=== PATIENT | male | born 1960 | race Caucasian/White ===

== ENCOUNTER 2016-08-25 18:46 | Emergency (ER) | payer OTHER ==
[2016-08-25 19:06] VITALS: BMI 34.8
--- NOTE | 2016-08-25 19:16 | PDOC ---
History of Present Illness - General History Source: Patient Exam Limitations: No Limitations - History of Present Illness Initial Comments: 08/25/16 19:53 The patient is a 55 old male, with a significant past medical history of diverticulitis (4 years ago), who presents to the emergency department with complaints of lower abdominal pain for the past 2-3 days. The patient reports that the pain is a cramping sensation in nature in his lower abdominal region. He reports that he believes he has diverticulitis again because he feels the same symptoms that he felt 4 years ago. He reports associated bloating and gas. The patient reports that he is on blood thinners because of circulation issues in his legs. He denies chest pain, shortness of breath, headache and dizziness. He denies fever, chills, nausea, vomit, diarrhea and constipation. Allergies: Lisinopril Past surgical history: arthroscopy surgery 30 years ago Social history:Former smoker (quit in 2013) PCP: Dr. Tu Sol <Suyapa Adame - Last Filed: 08/25/16 19:55> <Alexander French - Last Filed: 08/26/16 03:42> - General Chief Complaint: Pain Stated Complaint: ABDOMINAL PAIN Time Seen by Provider: 08/25/16 19:15 Past History <Suyapa Adame - Last Filed: 08/25/16 19:55> - Past Medical History Anemia: No (IN THE PAST) Asthma: No Cancer: No Cardiac Disorders: No (10-15 YEARS AGO "SILENT" HEART ATTACK. [place]) CVA: No COPD: No (? SMOKED X 35 YEARS) CHF: No (FOR CHEST PAIN AND CARDIAC W/U NEGATIVE) Dementia: No Diabetes: No GI Disorders: Yes (BARRETS ESOPHAGUS, DIVERTICULOSIS) Disorders: Yes (OVERACTIVE BLADDER) HTN: Yes Hypercholesterolemia: Yes Liver Disease: No Seizures: No Thyroid Disease: No - Surgical History Abdominal Surgery: No Appendectomy: No Cardiac Surgery: No Cholecystectomy: No Lung Surgery: No Neurologic Surgery: No Orthopedic Surgery: Yes (25 YEARS AGO-ARTHROSCOPY) - Psycho/Social/Smoking Cessation Hx Anxiety: No Suicidal Ideation: No Smoking History: Former smoker Have you smoked in the past 12 months: No If you are a former smoker, when did you quit?: 2013 Information on smoking cessation initiated: No Hx Alcohol Use: No Drug/Substance Use Hx: No Substance Use Type: None Hx Substance Use Treatment: No <Alexander French - Last Filed: 08/26/16 03:42> - Past Medical History Allergies/Adverse Reactions: Allergies Allergy/AdvReac Type Severity Reaction Status Date / Time lisinopril Allergy Severe Lip Verified 08/25/16 18:55 swelling Home Medications: Ambulatory Orders Aspirin [Aspir 81] 81 mg PO DAILY 01/29/16 Acetaminophen [Tylenol .Extra-Strength -] 1,000 mg PO DAILY 02/09/16 Atorvastatin Ca [Lipitor] 20 mg PO HS 02/09/16 Cholecalciferol (Vitamin D3) [Vitamin D3] 2,000 unit PO DAILY 02/09/16 Clopidogrel Bisulfate [Clopidogrel] 75 mg PO DAILY 02/09/16 Omeprazole 20 mg PO BID #0 02/12/16 Ciprofloxacin [Cipro (Restricted To Id)] 500 mg PO Q12H #20 tablet 08/25/16 Metronidazole [Flagyl -] 500 mg PO TID #30 tablet 08/25/16 Mirabegron [Myrbetriq] 25 mg PO 08/25/16 Review of Systems - Review of Systems Able to Perform ROS?: Yes Comments:: 08/25/16 19:54 GENERAL/CONSTITUTIONAL: No fever or chills. No weakness. HEAD, EYES, EARS, NOSE AND THROAT: No change in vision. No ear pain or discharge. No sore throat. CARDIOVASCULAR: No chest pain or shortness of breath. RESPIRATORY: No cough, wheezing, or hemoptysis. GASTROINTESTINAL: +Lower abdominal pain No nausea, vomiting, diarrhea or constipation. GENITOURINARY: No dysuria, frequency, or change in urination. MUSCULOSKELETAL: No joint or muscle swelling or pain. No neck or back pain. SKIN: No rash NEUROLOGIC: No headache, vertigo, loss of consciousness, or change in strength/ sensation. ENDOCRINE: No increased thirst. No abnormal weight change. HEMATOLOGIC/LYMPHATIC: No anemia, easy bleeding, or history of blood clots. ALLERGIC/IMMUNOLOGIC: No hives or skin allergy. <Suyapa Adame - Last Filed: 08/25/16 19:55> *Physical Exam - Vital Signs Last Vital Signs Temp Pulse Resp BP Pulse Ox 99.5 F 109 H 16 134/87 96 08/25/16 18:50 05/07/17 18:50 08/25/16 18:50 08/25/16 18:50 08/25/16 18:50 - Physical Exam Comments: 08/25/16 19:54 GENERAL: Awake, alert, and fully oriented, in no acute distress HEAD: No signs of trauma EYES: PERRLA, EOMI, sclera anicteric, conjunctiva clear ENT: Auricles normal inspection, hearing grossly normal, nares patent, oropharynx clear without exudates. Moist mucosa NECK: Normal ROM, supple, no lymphadenopathy, JVD, or masses LUNGS: Breath sounds equal, clear to auscultation bilaterally. No wheezes, and no crackles HEART: Regular rate and rhythm, normal S1 and S2, no murmurs, rubs or gallops ABDOMEN:. +Tender in the left lower quadrant. +Abdominal distension. Soft, normoactive bowel sounds. No guarding, no rebound. No masses EXTREMITIES: Normal range of motion, no edema. No clubbing or cyanosis. No cords, erythema, or tenderness NEUROLOGICAL: Cranial nerves II through XII grossly intact. Normal speech, normal gait SKIN: Warm, Dry, normal turgor, no rashes or lesions noted. <Suyapa Adame - Last Filed: 08/25/16 19:55> - Vital Signs Last Vital Signs Temp Pulse Resp BP Pulse Ox 99.5 F 109 H 16 134/87 96 08/25/16 18:50 08/25/16 18:50 08/25/16 18:50 08/25/16 18:50 08/25/16 18:50 <Alexander French - Last Filed: 08/26/16 03:42> ED Treatment Course - LABORATORY CBC & Chemistry Diagram: 08/25/16 19:20 08/25/16 19:20 <Suyapa Adame - Last Filed: 08/25/16 19:55> - LABORATORY CBC & Chemistry Diagram: 08/25/16 19:20 08/25/16 19:20 <Alexander French - Last Filed: 08/26/16 03:42> Medical Decision Making - Medical Decision Making 08/26/16 03:41 diverticulitis abx d/w pt: outpt imaging to fu renal findings on CT. copy of report given to pt to bring to PMD <Alexander French - Last Filed: 08/26/16 03:42> *DC/Admit/Observation/Transfer - Attestations Scribe Attestion: 08/25/16 19:54 Documentation prepared by FESTUS Toth, acting as lead medical technologist for Alexander French MD. <Suyapa Adame - Last Filed: 08/25/16 19:55> <Alexander French - Last Filed: 08/26/16 03:42> Diagnosis at time of Disposition: Diverticulitis Qualifiers: Diverticulitis site: large intestine Diverticulitis bleeding: without bleeding Diverticulitis complication: without perforation or abscess Qualified Code(s): K57.32 - Diverticulitis of large intestine without perforation or abscess without bleeding - Discharge Dispostion Disposition: HOME Condition at time of disposition: Good - Prescriptions Prescriptions: Ciprofloxacin [Cipro (Restricted To Id)] 500 mg PO Q12H #20 tablet Metronidazole [Flagyl -] 500 mg PO TID #30 tablet - Referrals Referrals: Tu Sol MD [Primary Care Provider] - - Patient Instructions Printed Discharge Instructions: DI for Diverticulitis
[2016-08-25 19:59] LABS: BASOPHIL 0.6 % (0-2.0); EOSINOPHIL 3.1 % (0-4.5); MCH 29.9 pg (25.7-33.7); MEAN CELL VOLUME 87.9 fl (80-96); MEAN PLT VOLUME 9.9 fl (7.5-11.1); NEUTROPHILS 64.1 % (42.8-82.8); PLATELET COUNT 198 K/MM3 (134-434); RDW 13.6 % (11.9-15.9)
[2016-08-25 20:08] LABS: ALBUMIN 4.1 g/dl (3.5-5.0); ALK PHOS 114 U/L (32-92); ANION GAP 9 (8-16); BILIRUBIN,TOTAL 0.5 mg/dl (0.2-1.0); CALCIUM 9.5 mg/dl (8.4-10.2); CO2 28 mmol/L (22-28); COCKROFT - GAULT 99; CREATININE 1.2 mg/dl (0.6-1.3); GLUCOSE,RANDOM 87 mg/dl (74-106); SGOT/AST 35 U/L (10-42); SGPT/ALT 61 U/L (10-40); TOT PROT 8.1 g/dl (6.4-8.3)
[2016-08-25] MEDS ORDERED: CIPROFLOXACIN 500 MG TABLET (RESTRICTED TO ID) PO ONE (22:18)
[2016-08-25] MEDS ORDERED: metroNIDAZOLE 250 MG TABLET PO ONE (22:19)
[2016-08-25] MEDS ORDERED: metroNIDAZOLE 250 MG TABLET ONE (22:24)
[2016-08-25] MEDS ORDERED: CIPROFLOXACIN 250 MG TABLET (RESTRICTED TO ID) PO ONE (22:24)
[2016-08-25 22:31] VITALS: BP 150/80; PULSE 92; TEMP 98.1
== END 2016-08-25 22:31 | disposition home or self-care (01) ==
LOC: FER 18:46
DX: K57.32 Diverticulitis of large intestine without perforation or abscess without bleeding (principal); I10 Essential (primary) hypertension; I25.2 Old myocardial infarction; Z95.5 Presence of coronary angioplasty implant and graft; N32.81 Overactive bladder; E78.00 Pure hypercholesterolemia, unspecified; Z87.891 Personal history of nicotine dependence; Z79.82 Long term (current) use of aspirin
CPT/HCPCS: 36415; 74177-TC; 80053; 85025; 99283-25

== ENCOUNTER 2017-01-06 08:48 | Day surgery (SDC) | payer OTHER ==
[2017-01-02 13:20] VITALS: BMI 34.7
[2017-01-06] MEDS ORDERED: PROPOFOL 20 ML ONE (09:56)
[2017-01-06 11:21] VITALS: TEMP 98
[2017-01-06 11:43] VITALS: BP 148/83; PULSE 84
--- NOTE | 2017-01-08 15:48 | PATH ---
Surgical Pathology Report Patient Name: TERRI PENNINGTON [facility]. Rec. #: [id number] /Age/Gender: 1960 (Age: 56) / M Account: [id number] Location: [facility]-ENDOSCOPY Taken: 01/06/2017 Received: 01/06/2017 Reported: 01/08/2017 Physicians: Elijah Robbins M.D. Specimen(s) Received A: BX 38CM B: BX 35CM C: BX 30CM Clinical History GERD, history of Ayala's History of Ayala's esophagus Final Diagnosis A. 38 CM, BIOPSY: COLUMNAR (GASTRIC-TYPE) MUCOSA SHOWING MILD CHRONIC INFLAMMATION AND INTESTINAL METAPLASIA, CONSISTENT WITH AYALA'S ESOPHAGUS IN THE APPROPRIATE ENDOSCOPIC SETTING. NEGATIVE FOR DYSPLASIA. B. 35 CM, BIOPSY: COLUMNAR (GASTRIC-TYPE) MUCOSA SHOWING MILD CHRONIC INFLAMMATION. NEGATIVE FOR INTESTINAL METAPLASIA AND DYSPLASIA. C. 30 CM, BIOPSY: COLUMNAR (GASTRIC-TYPE) MUCOSA SHOWING MILD CHRONIC INFLAMMATION. NEGATIVE FOR INTESTINAL METAPLASIA AND DYSPLASIA. Electronically Signed Shaila Stock M.D. Gross Description A. Received in formalin, labeled "38 cm" are 2 seals, irregular portions of soft tissue measuring 0.2 and 0.3 cm. in greatest dimension. The specimens are submitted in toto in one cassette. B. Received in formalin, labeled "35 cm" are 3 seals, irregular portions of soft tissue ranging from 0.1-0.2 cm. in greatest dimension. The specimens are submitted in toto in one cassette. C. Received in formalin, labeled "30 cm" are 4 seals, irregular portions of soft tissue ranging from 0.1-0.3 cm. in greatest dimension. The specimens are submitted in toto in one cassette. 01/07/2017 saudi01/07/2017
== END 2017-01-06 11:45 | disposition home or self-care (01) ==
LOC: FASU-ENDO 08:48
PROVIDERS: ATTEND Internal Medicine Gastroenterology
PROC: 0DB58ZX Excision of Esophagus, Via Natural or Artificial Opening Endoscopic, Diagnostic (ICD-10-PCS; principal; 2017-01-06 10:50)
DX: K22.70 Barrett's esophagus without dysplasia (principal); K44.9 Diaphragmatic hernia without obstruction or gangrene
CPT/HCPCS: 88305-TC

== ENCOUNTER 2017-03-20 17:59 | Inpatient (IN) | payer OTHER ==
[2017-03-20] MEDS ORDERED: SODIUM CHLORIDE 1,000 ML IV STA (18:26)
--- NOTE | 2017-03-20 18:34 | PDOC ---
History of Present Illness - History of Present Illness Initial Comments: 03/20/17 18:44 The patient is a 56 year old male, with a significant past medical history of diverticulitis (1yr ago), htn, who presents to the emergency department with explosive diarrhea, RLQ pain, and subjective fevers for 4 days. He reports waking up on Friday morning feeling well, until after he ate eggs and carey when he developed explosive diarrhea followed by pain to his right lower abdominal region. He reports numerous episodes of nonbloody, loose stools since onset. He also reports 2 episodes of nonbilious/nonbloody emesis on Friday afternoon. He reportedly took pepto bismol with temporary relief of his diarrhea , however, reports the stomach cramp got worse. He reports the abdominal pain was feeling better on Friday evening, however, reportedly ate eggs this morning which exacerbated the RLQ pain. He describes the pain as a 4/10 cramping sensation. He denies black stools or hematochezia. He reports one small , formed, bowel movement today. He states he feels very hot and cold, but denies taking his temperature. He denies chest pain, shortness of breath, headache and dizziness. He denies nausea, vomit, and constipation. He denies dysuria, frequency, urgency and hematuria. Allergies: lisinopril <Sharon Painter - Last Filed: 03/20/17 21:01> - General History Source: Patient <Deni Jones - Last Filed: 03/27/17 20:20> - General Chief Complaint: Pain Stated Complaint: STOMACH CRAMPS Time Seen by Provider: 03/20/17 18:07 Past History <Sharon Painter - Last Filed: 03/20/17 21:01> - Past Medical History Anemia: No (IN THE PAST) Asthma: No Cancer: No Cardiac Disorders: Yes CVA: No COPD: Yes (SMOKED X 35 YEARS) CHF: No (FOR CHEST PAIN AND CARDIAC W/U NEGATIVE) Dementia: No Diabetes: No GI Disorders: Yes Disorders: Yes HTN: Yes Hypercholesterolemia: Yes Liver Disease: No Seizures: No Thyroid Disease: No Other medical history: LOWER EXTREMITY ARTERIAL INSUFFICIENCY - Surgical History Abdominal Surgery: No Appendectomy: No Cardiac Surgery: Yes (CATHETERIZATION/1 STENT) Cholecystectomy: No Lung Surgery: No Neurologic Surgery: No Orthopedic Surgery: Yes (-LEFT KNEE ARTHROSCOPY 1992) - Suicide/Smoking/Psychosocial Hx Smoking History: Former smoker Have you smoked in the past 12 months: No If you are a former smoker, when did you quit?: 2013 Information on smoking cessation initiated: No Hx Alcohol Use: No Drug/Substance Use Hx: No Substance Use Type: None Hx Substance Use Treatment: No <Deni Jones - Last Filed: 03/27/17 20:20> - Past Medical History Allergies/Adverse Reactions: Allergies Allergy/AdvReac Type Severity Reaction Status Date / Time lisinopril Allergy Severe Lip Verified 08/25/16 18:55 swelling Home Medications: Ambulatory Orders Aspirin [Aspir 81] 81 mg PO DAILY 01/29/16 Atorvastatin Ca [Lipitor] 20 mg PO DAILY 02/09/16 Cholecalciferol (Vitamin D3) [Vitamin D3] 2,000 unit PO DAILY 02/09/16 Pantoprazole Sodium [Protonix] 40 mg PO BID 01/02/17 Tamsulosin HCl [Flomax] 0.4 mg PO BID 01/02/17 Amlodipine Besylate [Norvasc -] 10 mg PO DAILY #30 tablet 03/24/17 Melatonin 5 mg PO HS PRN tab 03/24/17 Review of Systems - Review of Systems Able to Perform ROS?: Yes Is the patient limited American proficient: No Constitutional: Yes: Chills, Fever (subjective). No: Loss of Appetite, Malaise , Night Sweats, Weakness HEENTM: No: Eye Pain, Recent change in vision, Ear Pain, Ear Discharge, Nose Congestion, Throat Pain, Throat Swelling Respiratory: No: Cough, Orthopnea, Shortness of Breath, SOB with Exertion Cardiac (ROS): No: Chest Pain, Edema, Palpitations ABD/GI: Yes: Diarrhea, Vomiting (x2 (now resolved)), Abdominal cramping (RLQ, 4/ 10). No: Abdominal Distended, Abd. Pain w/ defecation, Blood Streaked Bowels, Constipated, Difficulty Swallowing, Rectal Bleeding, Tarry Stools : No: Burning, Dysuria, Discharge, Frequency, Flank Pain, Hematuria, Incontinence, Testicular Pain Musculoskeletal: No: Back Pain, Joint Pain, Muscle Pain, Muscle Weakness, Neck Pain Integumentary: No: Bruising, Erythema Neurological: No: Headache, Numbness, Paresthesia, Weakness, Unsteady Gait, Dizziness Psychiatric: No: Anxiety, Depression Endocrine: No: Excessive Sweating, Increased Thirst, Increased Urine, Unexplained Weight Loss, Change in Weight Hematologic/Lymphatic: No: Anemia, Easy Bleeding, Easy Bruising All Other Systems: Reviewed and Negative <Sharon Painter - Last Filed: 03/20/17 21:01> *Physical Exam - Vital Signs Last Vital Signs Temp Pulse Resp BP Pulse Ox 97.8 F 99 H 18 127/75 99 03/20/17 18:01 03/20/17 18:01 03/20/17 18:01 03/20/17 18:01 03/20/17 18:01 - Physical Exam General Appearance: Yes: Appropriately Dressed, Mild Distress, Obese HEENT: positive: EOMI, PABLO, Normal ENT Inspection, Normal Voice, TMs Normal Neck: positive: Trachea midline, Normal Thyroid, Supple. negative: Tender Respiratory/Chest: positive: Lungs Clear, Normal Breath Sounds. negative: Chest Tender, Respiratory Distress, Rales, Rhonchi, Wheezing Cardiovascular: positive: Regular Rhythm, Regular Rate Gastrointestinal/Abdominal: positive: Normal Bowel Sounds, Protuberent, Tenderness (mild diffuse abdomen ttp). negative: Guarding, Rebound Musculoskeletal: positive: Normal Inspection. negative: CVA Tenderness Extremity: positive: Normal Capillary Refill, Normal Inspection, Normal Range of Motion Integumentary: positive: Normal Color, Dry, Warm Neurologic: positive: blister packing machine tender II-XII NML intact, Fully Oriented, Alert, Normal Mood/ Affect, Normal Response, Motor Strength 5/5 <Sharon Painter - Last Filed: 03/20/17 21:01> - Vital Signs Last Vital Signs Temp Pulse Resp BP Pulse Ox 97.8 F 99 H 18 127/75 99 03/20/17 18:01 03/20/17 18:01 03/20/17 18:01 03/20/17 18:01 03/20/17 18:01 <Deni Jones - Last Filed: 03/27/17 20:20> Heart Score/ECG Review - ECG Intrepretation Comment:: 03/20/17 19:03 ECG was read by Dr. Jnoes at 18:53 Impression: Normal sinus rhythm, right bundle branch block. Vent.Rate: 85 bpm <Sharon Painter - Last Filed: 03/20/17 21:01> ED Treatment Course - LABORATORY CBC & Chemistry Diagram: 03/20/17 18:33 03/20/17 18:33 <Sharon Painter - Last Filed: 03/20/17 21:01> - LABORATORY CBC & Chemistry Diagram: 03/24/17 07:40 03/24/17 07:40 <Deni Jones - Last Filed: 03/27/17 20:20> Medical Decision Making - Medical Decision Making 03/20/17 18:49 Pt is a 56 yo M who presents for 4 day complaint of diarrhea, RLQ pain, chills. Pt was evaluated upon arrival to the ED. I will give IV fluids and obtain an abdomen CT considering his Hx of diverticulitis. 03/20/17 19:00 The care of this patient has been endorsed to Dr. Gadiel Contreras. <Sharon Painter - Last Filed: 03/20/17 21:01> *DC/Admit/Observation/Transfer - Attestations Scribe Attestion: 03/20/17 18:49 Documentation prepared by Sharon Painter, acting as medical support assistant for Deni Jones MD <Sharon Painter - Last Filed: 03/20/17 21:01> <Deni Jones - Last Filed: 03/27/17 20:20> Diagnosis at time of Disposition: Renal failure, acute, Diarrhea - Discharge Dispostion Condition at time of disposition: Improved
[2017-03-20 18:47] LABS: PH,URINE 5.5 (4.5-8); URINE APPEARANCE Clear; URINE BILIRUBIN Negative (NEGATIVE); URINE BLOOD Negative (NEGATIVE); URINE GLUCOSE (UA) Negative (NEGATIVE); URINE KETONE Negative (NEGATIVE); URINE LEUK ESTERASE Negative (NEGATIVE); URINE NITRITE Negative (NEGATIVE); URINE UROBILINOGEN 0.2 (0.2-1.0)
[2017-03-20 18:48] LABS: URINE COLOR YELLOW; URINE PROTEIN 2+ (NEGATIVE)
[2017-03-20 18:55] LABS: ALBUMIN 4.2 g/dl (3.5-5.0); ALK PHOS 78 U/L (32-92); ANION GAP 9 (8-16); BASOPHIL 0.5 % (0-2.0); BILIRUBIN,TOTAL 1.1 mg/dl (0.2-1.0); CALCIUM 8.8 mg/dl (8.4-10.2); CO2 22 mmol/L (22-28); CREATININE 3.6 mg/dl (0.6-1.3); EOSINOPHIL 4.7 % (0-4.5); GLUCOSE,RANDOM 107 mg/dl (74-106); MCH 29.6 pg (25.7-33.7); MEAN CELL VOLUME 87.1 fl (80-96); MEAN PLT VOLUME 10.3 fl (7.5-11.1); NEUTROPHILS 55.5 % (42.8-82.8); PLATELET COUNT 156 K/MM3 (134-434); RDW 13.5 % (11.9-15.9); SGOT/AST 58 U/L (10-42); SGPT/ALT 104 U/L (10-40); TOT PROT 7.4 g/dl (6.4-8.3); WHITE BLOOD COUNT 7.2 K/mm3 (4.0-10.8)
[2017-03-20 19:10] LABS: URINE RBC 0-1 /hpf (0-3); URINE WBC 0-2 (0-2)
[2017-03-20 19:11] LABS: URINE BACTERIA FEW /hpf (NEGATIVE)
--- NOTE | 2017-03-20 19:21 | PDOC ---
*Physical Exam - Vital Signs Last Vital Signs Temp Pulse Resp BP Pulse Ox 97.8 F 99 H 18 127/75 99 03/20/17 18:01 03/20/17 18:01 03/20/17 18:01 03/20/17 18:01 03/20/17 18:01 <InocencioSharon - Last Filed: 03/20/17 21:02> - Vital Signs Last Vital Signs Temp Pulse Resp BP Pulse Ox 97.8 F 99 H 18 127/75 99 03/20/17 18:01 03/20/17 18:01 03/20/17 18:01 03/20/17 18:01 03/20/17 18:01 <Gadiel Mendoza I - Last Filed: 03/20/17 21:19> ED Treatment Course - LABORATORY CBC & Chemistry Diagram: 03/20/17 18:33 03/20/17 18:33 - ADDITIONAL ORDERS Additional order review: Laboratory Results 03/20/17 03/20/17 18:38 18:33 Sodium 130 L Potassium 3.9 Chloride 99 Carbon Dioxide 22 D Anion Gap 9 BUN 34 H D Creatinine 3.6 H D Creat Clearance w eGFR 17.50 Random Glucose 107 H D Calcium 8.8 Total Bilirubin 1.1 H D AST 58 H D ALT 104 H D Alkaline Phosphatase 78 D Total Protein 7.4 Albumin 4.2 Urine Color Yellow Urine Appearance Clear Urine pH 5.5 Ur Specific [place] <= 1.005 Urine Protein 2+ H Urine Glucose (UA) Negative Urine Ketones Negative Urine Blood Negative Urine Nitrite Negative Urine Bilirubin Negative Urine Urobilinogen 0.2 Ur Leukocyte Esterase Negative Urine RBC 0-1 Urine WBC 0-2 Amorphous Urates Few Urine Bacteria Few 03/20/17 18:33 RBC 4.72 MCV 87.1 MCHC 34.0 RDW 13.5 MPV 10.3 Neutrophils % 55.5 Lymphocytes % 23.8 Monocytes % 15.5 H D Eosinophils % 4.7 H Basophils % 0.5 - RADIOLOGY Radiograph Interpretation: EXAM#: TYPE/EXAM: RESULT: [id number] CT/ABDOMEN PELVIS CT W/O CONTR Exam: CT abdomen and pelvis without contrast. Indication: Right lower quadrant pain. Technique: Continues axial CT images of the abdomen and pelvis were obtained without venous contrast and without oral contrast. Comparison: 08/25/2016 CT abdomen/pelvis. Findings: Evaluation of the solid viscera, bowel, vessels and lymph nodes is limited without contrast. There is dependent subsegmental atelectasis versus linear scarring both lung bases, inferior lingula and medial right middle lobe. There is a small hiatal hernia. Liver is normal in size with steatosis. The gallbladder is not pathologically distended. Common bile duct is not dilated. Unenhanced pancreas is unremarkable. The spleen is enlarged measuring up to 14.3 cm in length. No adrenal gland mass. Small calcifications in the renal flaco are most likely vascular. There are no definite renal calculi. No ureteral or urinary bladder calculi identified. There are exophytic hypoattenuating lesions in both kidneys which are incompletely characterized without contrast, but appears similar to the prior exam, likely cysts. There is symmetric nonspecific perinephric fat stranding. Normal caliber abdominal aorta. Moderate calcific atherosclerosis along the abdominal aorta and branch vessels. There is a small hiatal hernia. No dilated loops of large or small bowel to suggest obstruction. There is diverticulosis of the sigmoid colon and scattered diverticula along the descending colon with no evidence of acute diverticulitis. Normal-appearing appendix in the right lower quadrant. No free intraperitoneal air or ascites. Urinary bladder is underdistended. Prostate gland is not enlarged. There is a small fat-containing left inguinal hernia. There is chronic bilateral L5 spondylolysis with grade 1 anterolisthesis of L5 on S1. Impression: 1. No urinary tract calculi identified. No obstructive uropathy. 2. Normal appendix. No evidence of acute diverticulitis. 3. Hepatic steatosis. 4. Splenomegaly. Reported By: Fidel Sepulveda DO 03/20/172058 - Medications Given in the ED: ED Medications Discontinued Medications Generic Name Dose Route Start Last Admin Trade Name Freq PRN Reason Stop Dose Admin Sodium Chloride 1,000 mls @ 1,000 mls/hr 03/20/17 18:26 03/20/17 18:33 Normal Saline - IV 03/20/17 19:25 1,000 mls/hr ASDIR STA Administration <Sharon Painter - Last Filed: 03/20/17 21:02> - LABORATORY CBC & Chemistry Diagram: 03/20/17 18:33 03/20/17 18:33 - ADDITIONAL ORDERS Additional order review: Laboratory Results 03/20/17 03/20/17 18:38 18:33 Sodium 130 L Potassium 3.9 Chloride 99 Carbon Dioxide 22 D Anion Gap 9 BUN 34 H D Creatinine 3.6 H D Creat Clearance w eGFR 17.50 Random Glucose 107 H D Calcium 8.8 Total Bilirubin 1.1 H D AST 58 H D ALT 104 H D Alkaline Phosphatase 78 D Total Protein 7.4 Albumin 4.2 Urine Color Yellow Urine Appearance Clear Urine pH 5.5 Ur Specific [place] <= 1.005 Urine Protein 2+ H Urine Glucose (UA) Negative Urine Ketones Negative Urine Blood Negative Urine Nitrite Negative Urine Bilirubin Negative Urine Urobilinogen 0.2 Ur Leukocyte Esterase Negative Urine RBC 0-1 Urine WBC 0-2 Amorphous Urates Few Urine Bacteria Few 03/20/17 18:33 RBC 4.72 MCV 87.1 MCHC 34.0 RDW 13.5 MPV 10.3 Neutrophils % 55.5 Lymphocytes % 23.8 Monocytes % 15.5 H D Eosinophils % 4.7 H Basophils % 0.5 <Gadiel Mendoza I - Last Filed: 03/20/17 21:19> Progress Note - Progress Note Progress Note: Care of this patient was transferred to ms from Dr. Jones at 1900 hrs. This is a morbidly obese 56-year-old old male with history significant for hypertension, high cholesterol, non-STEMI [place], diverticulitis 2 in the past most recently was back in August of this year. Patient came in this evening complaining of crampy abdominal pain 3 days with associated watery diarrhea 2 days. With a small but otherwise normal bowel movement today. Patient was afebrile here in the emergency room and had not taken his temperatures at home but said he felt hot and cold. Patient has a workup in progress including labs most of which are back. Patient has normal white count and there is no left shift. However on review of patient' s chemistries it is noted that he has a BUN of 34 and a creatinine of 3.6. It is notable that back in August of this year he had normal BUN and creat. He also has some elevation of his liver enzymes and which is new compared with his prior labs back in August. Patient is scheduled for a CT of the abdomen and pelvis to rule out intra- abdominal pathology. Given his elevated BUN and creat as well as his liver enzymes patient will have a noncontrast CT. His cardiogram shows a right bundle-branch block otherwise no acute pathology. CT was done and showed no acute intra-abdominal pathology, no obstructive uropathy there are some low attenuating lesions within the kidney most likely cysts and appeared to of been there on a prior scan. Does show a fatty liver otherwise normal. Assessment and plan: This is a 56-year-old male who comes in complaining of diarrhea and crampy abdominal pain. Patient was somewhat dehydrated on arrival in the emergency room he was hydrated with IV fluid however was noted that he had elevated liver enzymes as well as marked elevation of his creat over the last 5 months from 1.2-3.6. Discussed admission with the hospitalist for the acute renal failure patient will be placed in observation given some hydration and further workup regarding his renal insufficiency/failure <Gadiel Mendoza I - Last Filed: 03/20/17 21:19> *DC/Admit/Observation/Transfer - Attestations Scribe Attestion: 03/20/17 21:02 Documentation prepared by Sharon Painter, acting as medical records analyst for Gadiel Mendoza MD <Sharon Painter - Last Filed: 03/20/17 21:02> - Discharge Dispostion Admit: Yes <Gadiel Mendoza I - Last Filed: 03/20/17 21:19> Diagnosis at time of Disposition: Renal failure, acute Qualifiers: Acute renal failure type: unspecified Qualified Code(s): N17.9 - Acute kidney failure, unspecified Diarrhea Qualifiers: Diarrhea type: unspecified type Qualified Code(s): R19.7 - Diarrhea, unspecified - Discharge Dispostion Condition at time of disposition: Good - Referrals Referrals: Tu Sol MD [Primary Care Provider] - - Patient Instructions - Post Discharge Activity
[2017-03-20] MEDS ORDERED: SODIUM CHLORIDE 1,000 ML IV SCH (21:30)
--- NOTE | 2017-03-20 22:27 | HP ---
CHIEF COMPLAINT: Vomiting, Diarrhea and Abdominal Cramping PCP: Dr. Sol HISTORY OF PRESENT ILLNESS: This is a 56 y/o man with a past medical history of Diverticulitis. Who presents to the ED with abdominal cramping, non-bilious vomiting and diarrhea x 3 days. Patient reports having fever, chills with constant abdominal cramping. Patient reports pain to his epigastrium after eating. He reports that the vomiting resolved on Friday. Patient reports- last colonoscopy 2014- negative. Patient reports having a similar episode last August and was treated for Diverticulitis. Patient denies fever, chills, cough, SOB, CP, dysruia ER course was notable for: (1) CTAP- no Acute Diverticulitis. Fatty Liver, Diverticulosis of sigmoid colon (2) ELVIS- 34/3.6 (3) Mild transaminitis: 58/104/78 Recent Travel: None PAST MEDICAL HISTORY: HTN HLD Diverticulitis Frazier's Esophagus Hiatal Hernia PAD COPD Emphysema PAST SURGICAL HISTORY: Left iliac stent R-leg stent 01/2015 EGD 12/2016 Colonoscopy 2014 Social History: Smoking: Former x4 years ago Alcohol: Former x4 years ago Drugs: None Lives with family, retired Family History: Mother: Brain Ca, Sister: Ovarian Ca, Brother: Pancreatic Ca Sister: Colon Ca Allergies lisinopril Allergy (Severe, Verified 08/25/16 18:55) Lip swelling had been on medication approx 10 yrs before reaction HOME MEDICATIONS: Home Medications Medication Instructions Recorded Aspirin [Aspir 81] 81 mg PO DAILY 01/29/16 Atorvastatin Ca [Lipitor] 20 mg PO DAILY 02/09/16 Cholecalciferol (Vitamin D3) 2,000 unit PO DAILY 02/09/16 [Vitamin D3] Acetaminophen/Diphenhydramine 1 each PO HS PRN 01/02/17 [Tylenol Pm Ex-Strength Caplet] Pantoprazole Sodium [Protonix] 40 mg PO BID 01/02/17 Tamsulosin HCl [Flomax] 0.4 mg PO BID 01/02/17 REVIEW OF SYSTEMS CONSTITUTIONAL: Absent: fever, chills, diaphoresis, generalized weakness, malaise, loss of appetite, weight change HEENT: Absent: rhinorrhea, nasal congestion, throat pain, throat swelling, difficulty swallowing, mouth swelling, ear pain, eye pain, visual changes CARDIOVASCULAR: Absent: chest pain, syncope, palpitations, irregular heart rate, lightheadedness , peripheral edema RESPIRATORY: Absent: cough, shortness of breath, dyspnea with exertion, orthopnea, wheezing, stridor, hemoptysis GASTROINTESTINAL: abdominal pain, vomiting, diarrhea Absent: abdominal pain, abdominal distension, nausea, constipation, melena, hematochezia GENITOURINARY: Absent: dysuria, frequency, urgency, hesitancy, hematuria, flank pain, genital pain MUSCULOSKELETAL: Absent: myalgia, arthralgia, joint swelling, back pain, neck pain SKIN: Absent: rash, itching, pallor HEMATOLOGIC/IMMUNOLOGIC: Absent: easy bleeding, easy bruising, lymphadenopathy, frequent infections ENDOCRINE: Absent: unexplained weight gain, unexplained weight loss, heat intolerance, cold intolerance NEUROLOGIC: Absent: headache, focal weakness or paresthesias, dizziness, unsteady gait, seizure, mental status changes, bladder or bowel incontinence PSYCHIATRIC: Absent: anxiety, depression, suicidal or homicidal ideation, hallucinations. PHYSICAL EXAMINATION Vital Signs - 24 hr 03/20/17 18:01 Temperature 97.8 F Pulse Rate 99 H Respiratory 18 Rate Blood Pressure 127/75 O2 Sat by Pulse 99 Oximetry (%) GENERAL: Severely Obese, awake, alert, and fully oriented, in no acute distress. HEAD: Normal with no signs of trauma. EYES: Pupils equal, round and reactive to light, extraocular movements intact, sclera anicteric, conjunctiva clear. No lid lag. EARS, NOSE, THROAT: Ears normal, nares patent, oropharynx clear without exudates. Dry mucous membranes. NECK: Normal range of motion, supple without lymphadenopathy, JVD, or masses. LUNGS: Breath sounds equal, clear to auscultation bilaterally. No wheezes, and no crackles. No accessory muscle use. HEART: Regular rate and rhythm, normal S1 and S2 without murmur, rub or gallop. ABDOMEN: Firm, epigastric tenderness, distended, hyperactive bowel sounds, no guarding, no rebound, no masses. No hepatomegaly or splenomegaly. MUSCULOSKELETAL: Normal range of motion at all joints. No bony deformities or tenderness. No CVA tenderness. UPPER EXTREMITIES: 2+ pulses, warm, well-perfused. No cyanosis. No clubbing. No peripheral edema. LOWER EXTREMITIES: +2 R-foot, warm, well-perfused. +1 pulse, L-foot. No calf tenderness. No peripheral edema. NEUROLOGICAL: Cranial nerves II-XII intact. Normal speech. Gait not observed. PSYCHIATRIC: Cooperative. Good eye contact. Appropriate mood and affect. SKIN: Warm, dry, normal turgor, no rashes or lesions noted, normal capillary refill. Laboratory Results - last 24 hr 03/20/17 03/20/17 03/20/17 18:33 18:33 18:38 WBC 7.2 D RBC 4.72 Hgb 14.0 Hct 41.1 MCV 87.1 MCH 29.6 MCHC 34.0 RDW 13.5 Plt Count 156 D MPV 10.3 Neutrophils % 55.5 Lymphocytes % 23.8 Monocytes % 15.5 H D Eosinophils % 4.7 H Basophils % 0.5 Sodium 130 L Potassium 3.9 Chloride 99 Carbon Dioxide 22 D Anion Gap 9 BUN 34 H D Creatinine 3.6 H D Creat Clearance w eGFR 17.50 Random Glucose 107 H D Calcium 8.8 Total Bilirubin 1.1 H D AST 58 H D ALT 104 H D Alkaline Phosphatase 78 D Total Protein 7.4 Albumin 4.2 Urine Color Yellow Urine Appearance Clear Urine pH 5.5 Ur Specific [place] <= 1.005 Urine Protein 2+ H Urine Glucose (UA) Negative Urine Ketones Negative Urine Blood Negative Urine Nitrite Negative Urine Bilirubin Negative Urine Urobilinogen 0.2 Ur Leukocyte Esterase Negative Urine RBC 0-1 Urine WBC 0-2 Amorphous Urates Few Urine Bacteria Few Alcohol, Quantitative 03/20/17 21:25 WBC RBC Hgb Hct MCV MCH MCHC RDW Plt Count MPV Neutrophils % Lymphocytes % Monocytes % Eosinophils % Basophils % Sodium Potassium Chloride Carbon Dioxide Anion Gap BUN Creatinine Creat Clearance w eGFR Random Glucose Calcium Total Bilirubin AST ALT Alkaline Phosphatase Total Protein Albumin Urine Color Urine Appearance Urine pH Ur Specific [place] Urine Protein Urine Glucose (UA) Urine Ketones Urine Blood Urine Nitrite Urine Bilirubin Urine Urobilinogen Ur Leukocyte Esterase Urine RBC Urine WBC Amorphous Urates Urine Bacteria Alcohol, Quantitative < 5.0 L ASSESSMENT/PLAN: This is a 56 y/o man with a PMHx of: HTN, HLD, GERD, Diverticulitis. Admit for Acute Renal failure, Abdominal Pain, Gastroenteritis, Dehydration for further evaluation of their emergent condition. 1. ELVIS - Likely secondary to Dehydration - Cr 3.6, baseline last August was 1.2 - Fluid bolus given in ED - Continue IVF - BMP in am - Consider Nephrology Consult if condition worsens 2. Abdominal Pain - CTAP- No acute diverticulitis. fatty liver, diverticulosis - Appreciate GI Consult - Will not begin ABX, no clinical indication at this time 3. Gastroenteritis - Likely viral - Continue IVF - No leukocytosis, afebrile, LA- wnl - Repeat CBC, BMP in am - Monitor vitals - Obtain Stool Culture 4. Dehydration - See above 5. Transaminitis - Mildly elevated - Likely 6. Hypertension - Controlled - Monitor BP - Continue Norvasc, hold Losartan secondary to ELVIS - Monitor renal function 7. FEN - NS@75ml/hr - Replete lytes prn - NPO 8. DVT Prophylaxis - OOB - SCDs - Heparin SQ Code Status: Full Code Dispo: Requires Inpatient Care Problem List - Problem (1) Vomiting and diarrhea Code(s): R11.10 - VOMITING, UNSPECIFIED; R19.7 - DIARRHEA, UNSPECIFIED (2) Renal failure, acute Code(s): N17.9 - ACUTE KIDNEY FAILURE, UNSPECIFIED Qualifiers: Acute renal failure type: unspecified Qualified Code(s): N17.9 - Acute kidney failure, unspecified (3) Dehydration Code(s): E86.0 - DEHYDRATION (4) Diverticulosis of sigmoid colon Code(s): K57.30 - DVRTCLOS OF LG INT W/O PERFORATION OR ABSCESS W/O BLEEDING (5) Elevated transaminase level Code(s): R74.0 - NONSPEC ELEV OF LEVELS OF TRANSAMNS & LACTIC ACID DEHYDRGNSE (6) HTN (hypertension) Code(s): I10 - ESSENTIAL (PRIMARY) HYPERTENSION (7) HLD (hyperlipidemia) Code(s): E78.5 - HYPERLIPIDEMIA, UNSPECIFIED (8) DVT prophylaxis Code(s): [id number] - Visit type - Emergency Visit Emergency Visit: Yes ED Registration Date: 03/20/17 Care time: The patient presented to the Emergency Department on the above date and was hospitalized for further evaluation of their emergent condition. - New Patient This patient is new to me today: Yes Date on this admission: 03/20/17 - Critical Care Critical Care patient: No
[2017-03-20 22:56] VITALS: BMI 36.0
[2017-03-21] MEDS ORDERED: MELATONIN 5 MG TABLETS PO ONE (02:26)
[2017-03-21] MEDS: MELATONIN 5 MG TABLETS PO PRN (02:40)
[2017-03-21 08:18] LABS: BASOPHIL 0.4 % (0-2.0); EOSINOPHIL 3.6 % (0-4.5); MCH 30.4 pg (25.7-33.7); MCHC 34.7 g/dl (32.0-35.9); MEAN CELL VOLUME 87.4 fl (80-96); NEUTROPHILS 62.7 % (42.8-82.8); PLATELET COUNT 138 K/MM3 (134-434); RDW 13.3 % (11.9-15.9); WHITE BLOOD COUNT 6.8 K/mm3 (4.0-10.8)
[2017-03-21 08:34] LABS: ANION GAP 10 (8-16); CALCIUM 8.3 mg/dl (8.4-10.2); CO2 18 mmol/L (22-28); CREATININE 4.1 mg/dl (0.6-1.3); GLUCOSE,RANDOM 109 mg/dl (74-106)
[2017-03-21] MEDS: ATORVASTATIN CA 20 MG TABLET (FP) PO SCH (09:15)
[2017-03-21] MEDS: TAMSULOSIN HCL 0.4 MG CAP.ER.24H (FP) PO SCH ×2 (09:15→21:11)
[2017-03-21] MEDS: amLODIPine BESYLATE 5 MG TABLET (FP) PO SCH (09:15)
[2017-03-21] MEDS: ASPIRIN COATED 81 MG TABLET.EC PO SCH (09:15)
[2017-03-21] MEDS: CLOPIDOGREL BISULFATE 75 MG TABLET (FP) PO SCH (09:15)
--- NOTE | 2017-03-21 13:28 | PN ---
Progress Note (short form) - Note Progress Note: Patient seen and chart/labs reviewed with consult dictated. Patient admitted with several days of RLQ discomfort, diarrhea and nausea with decreased PO intake. May also have had fever?? Currently with minimal lower abdominal discomfort, no diarrhea and no fever/ chills. States nausea also improved and he wishes to eat. Labs with elevated AST/ALT and CT c/w fatty liver ; to repeat labs and monitor. If still elevated, would check hepatitis viral titers (if negative may have steato-hepatitis) Patient also with elevated serum creatinine ?ELVIS ?dehydration? To advance diet Check labs No indiication for GI endoscopy at this time ?Nephrology consult
--- NOTE | 2017-03-21 13:44 | EKG ---
Test Reason : Blood Pressure : / mmHG Vent. Rate : 085 BPM Atrial Rate : 085 BPM P-R Int : 158 ms QRS Dur : 138 ms QT Int : 394 ms P-R-T Axes : 038 073 034 degrees QTc Int : 468 ms NORMAL SINUS RHYTHM RIGHT BUNDLE BRANCH BLOCK ABNORMAL ECG NO PREVIOUS ECGS AVAILABLE Confirmed by JAMI GREENWOOD MD ([id number]) on 03/21/2017 1:44:48 PM Referred By: DR CLARK Confirmed By:JAMI GREENWOOD MD
[2017-03-21] MEDS ORDERED: PANTOPRAZOLE SODIUM 40 MG in SODIUM CHLORIDE 100 ML IVPB ONE ×2 (14:00→16:00)
--- NOTE | 2017-03-21 14:18 | CONSULT ---
Consult Consult Specialty:: Nephrology Reason for Consultation:: ELVIS - History of Present Illness Chief Complaint: diarrhea History of Present Illness: Pt is a 56 year old male with pmhx of diverticulitis and HTN who presents to the ER with diarrhea. He says that it began on Friday and lasted until Friday night. He described it as explosive and could not count how many episodes he had. He says his niece had the same thing however she improved after on day. He felt weak and came in to the hospital. He was found to be in acute renal failure and I was called to evaluate him. He denies nsaid use. He says he could not keep up with drinking enough fluids. He was having phan amish and did not have much appetite. He denies blood in stool. He feels his urine was darker. He denies history of kidney disease in the past. He also complains of abdominal pain which has since improved. He denies nausea or vomiting. He has better appetite today but has not eaten much. - History Source History Provided By: Patient, Medical Record - Past Medical History Cardio/Vascular: Yes: HTN, Hyperlipdemia Pulmonary: Yes: COPD Gastrointestinal: Yes: GERD, Other (Frazier's esophagus) Renal/: Yes: BPH - Alcohol/Substance Use Hx Alcohol Use: No - Smoking History Smoking history: Former smoker Have you smoked in the past 12 months: No Aproximately how many cigarettes per day: 30 If you are a former smoker, when did you quit?: 2013 Home Medications - Allergies Allergies/Adverse Reactions: Allergies Allergy/AdvReac Type Severity Reaction Status Date / Time lisinopril Allergy Severe Lip Verified 08/25/16 18:55 swelling - Home Medications Home Medications: Ambulatory Orders Aspirin [Aspir 81] 81 mg PO DAILY 01/29/16 Atorvastatin Ca [Lipitor] 20 mg PO DAILY 02/09/16 Cholecalciferol (Vitamin D3) [Vitamin D3] 2,000 unit PO DAILY 02/09/16 Acetaminophen/Diphenhydramine [Tylenol Pm Ex-Strength Caplet] 1 each PO HS PRN 01/02/17 Pantoprazole Sodium [Protonix] 40 mg PO BID 01/02/17 Tamsulosin HCl [Flomax] 0.4 mg PO BID 01/02/17 Family Disease History - Family Disease History Family History: Denies Review of Systems - Review of Systems Constitutional: reports: Malaise. denies: Chills, Fever Eyes: reports: No Symptoms HENT: reports: No Symptoms Neck: reports: No Symptoms Cardiovascular: reports: No Symptoms Respiratory: reports: No Symptoms Gastrointestinal: reports: Abdominal Pain, Diarrhea Genitourinary: reports: No Symptoms Musculoskeletal: reports: No Symptoms Integumentary: reports: No Symptoms Neurological: reports: No Symptoms Endocrine: reports: No Symptoms Hematology/Lymphatic: reports: No Symptoms Psychiatric: reports: No Symptoms Physical Exam Vital Signs: Vital Signs Temperature 97.7 F 03/21/17 14:01 Pulse Rate 85 03/21/17 14:01 Respiratory Rate 18 03/21/17 14:01 Blood Pressure 127/81 03/21/17 14:01 O2 Sat by Pulse Oximetry (%) 97 03/21/17 05:18 Constitutional: Yes: Calm Eyes: Yes: Conjunctiva Clear HENT: Yes: Atraumatic Neck: Yes: Supple Cardiovascular: Yes: S1, S2 Respiratory: Yes: CTA Bilaterally Gastrointestinal: Yes: Soft, Abdomen, Obese Renal/: Yes: WNL. No: CVA Tenderness - Left, CVA Tenderness - Right Musculoskeletal: Yes: WNL Extremities: Yes: WNL Edema: No Neurological: Yes: Oriented Psychiatric: Yes: Oriented Labs: CBC, BMP 03/21/17 07:00 03/21/17 07:00 Laboratory Tests 01/17/16 08/25/16 03/20/17 08:30 19:20 18:33 Hgb Sodium 130 L Potassium Creatinine 1.0 1.2 Random Glucose 107 H D Calcium AST 58 H D ALT 104 H D Urine Protein Urine Blood Alcohol, Quantitative 03/20/17 03/20/17 03/21/17 18:38 21:25 07:00 Hgb 12.7 Sodium Potassium Creatinine Random Glucose Calcium AST ALT Urine Protein 2+ H Urine Blood Negative Alcohol, Quantitative < 5.0 L 03/21/17 07:00 Hgb Sodium 133 L Potassium 3.7 Creatinine Random Glucose 109 H Calcium 8.3 L AST ALT Urine Protein Urine Blood Alcohol, Quantitative Imaging - Results Cat Scan: Report Reviewed (negative hydro, there is hepatic steatosis and splenomegaly) Ultrasound: Report Reviewed (left renal simple cyst) Problem List - Problems (1) Dehydration Code(s): E86.0 - DEHYDRATION (2) Diarrhea Code(s): R19.7 - DIARRHEA, UNSPECIFIED Qualifiers: Diarrhea type: unspecified type Qualified Code(s): R19.7 - Diarrhea, unspecified (3) Diverticulosis of sigmoid colon Code(s): K57.30 - DVRTCLOS OF LG INT W/O PERFORATION OR ABSCESS W/O BLEEDING (4) Elevated transaminase level Code(s): R74.0 - NONSPEC ELEV OF LEVELS OF TRANSAMNS & LACTIC ACID DEHYDRGNSE (5) HTN (hypertension) Code(s): I10 - ESSENTIAL (PRIMARY) HYPERTENSION (6) Renal failure, acute Code(s): N17.9 - ACUTE KIDNEY FAILURE, UNSPECIFIED Qualifiers: Acute renal failure type: unspecified Qualified Code(s): N17.9 - Acute kidney failure, unspecified Assessment/Plan Current Medications Generic Name Dose Route Start Last Admin Trade Name Freq PRN Reason Stop Dose Admin Amlodipine Besylate 5 mg 03/21/17 10:00 03/21/17 09:15 Norvasc - PO 5 mg DAILY RUSSELL Administration Aspirin 81 mg 03/21/17 10:00 03/21/17 09:15 Ecotrin - PO 81 mg DAILY RUSSELL Administration Atorvastatin Calcium 20 mg 03/21/17 10:00 03/21/17 09:15 Lipitor - PO 20 mg DAILY RUSSELL Administration Clopidogrel Bisulfate 75 mg 03/21/17 10:00 03/21/17 09:15 Plavix - PO 75 mg DAILY RUSSELL Administration Sodium Chloride 1,000 mls @ 100 mls/hr 03/20/17 21:30 03/20/17 23:32 Normal Saline - IV 100 mls/hr ASDIR RUSSELL Administration Melatonin 5 mg 03/21/17 02:28 03/21/17 02:40 Melatonin PO 5 mg HS PRN Administration INSOMNIA Tamsulosin HCl 0.4 mg 03/21/17 10:00 03/21/17 09:15 Flomax - PO 0.4 mg BID RUSSELL Administration Impression 1. ELVIS 2. hyponatremia 3. BPH 4. diarrhea 5. abdominal pain 6. insomnia 7. hx diverticulosis 8. PVD 9. hyperlipidemia 10. renal cyst 11. transaminitis 12. hepatic steatosis 13. spenomegaly 14. proteinuria on UA Plan - send urine sodium and urine cratinine to calculate FENa. 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
--- NOTE | 2017-03-21 15:09 | PN ---
Physical Exam: SUBJECTIVE: Patient seen and examined, reports nausea, denies any chest pain or shortness of breath. OBJECTIVE: patient is 56 y/o male with a pmh of HTN, HLD, Diverticulitis, Frazier's Esophagus, Hiatal Hernia, PAD, COPD (emphysema). Patient was admitted from the emergency department for acute renal failure. Vital Signs Period Temp Pulse Resp BP Sys/Muller Pulse Ox Last 24 Hr 97.7 F-98.2 F 78-99 18-20 127-157/73-81 97-99 GENERAL: The patient is awake, alert, and fully oriented, in no acute distress. HEAD: Normal with no signs of trauma. EYES: PERRL, extraocular movements intact, sclera anicteric, conjunctiva clear. No ptosis. ENT: Ears normal, nares patent, oropharynx clear without exudates, moist mucous membranes. NECK: Trachea midline, full range of motion, supple. LUNGS: Breath sounds equal, clear to auscultation bilaterally, no wheezes, no crackles, no accessory muscle use. HEART: Regular rate and rhythm, S1, S2 without murmur, rub or gallop. ABDOMEN: Soft, obese, + hepatosplenomegaly, nontender, nondistended, normoactive bowel sounds, no guarding, no rebound, no masses. EXTREMITIES: 2+ pulses, warm, well-perfused, no edema. NEUROLOGICAL: Cranial nerves II through XII grossly intact. Normal speech, gait not observed. PSYCH: Normal mood, normal affect. SKIN: Warm, dry, normal turgor, no rashes or lesions noted Laboratory Results - last 24 hr CBC WBC 6.8 K/mm3 (4.0-10.8) 03/21/17 07:00 RBC 4.17 M/mm3 (4.00-5.60) 03/21/17 07:00 Hgb 12.7 GM/dl (11.7-16.9) 03/21/17 07:00 Hct 36.5 % (35.4-49) 03/21/17 07:00 MCV 87.4 fl (80-96) 03/21/17 07:00 MCH 30.4 pg (25.7-33.7) 03/21/17 07:00 MCHC 34.7 g/dl (32.0-35.9) 03/21/17 07:00 RDW 13.3 % (11.9-15.9) 03/21/17 07:00 Plt Count 138 K/MM3 (134-434) 03/21/17 07:00 MPV 10.0 fl (7.5-11.1) 03/21/17 07:00 Neutrophils % 62.7 % (42.8-82.8) 03/21/17 07:00 Lymphocytes % 20.9 % (8-40) 03/21/17 07:00 Monocytes % 12.4 % (3.8-10.2) H 03/21/17 07:00 Eosinophils % 3.6 % (0-4.5) 03/21/17 07:00 Basophils % 0.4 % (0-2.0) 03/21/17 07:00 CMP Sodium 133 mmol/L (136-145) L 03/21/17 07:00 Potassium 3.7 mmol/L (3.5-5.1) 03/21/17 07:00 Chloride 105 mmol/L (98-107) 03/21/17 07:00 Carbon Dioxide 18 mmol/L (22-28) L 03/21/17 07:00 Anion Gap 10 (8-16) 03/21/17 07:00 BUN 41 mg/dl (7-18) H D 03/21/17 07:00 Creatinine 4.1 mg/dl (0.6-1.3) H 03/21/17 07:00 Creat Clearance w eGFR 17.50 (>60) 03/20/17 18:33 Random Glucose 109 mg/dl (74-106) H 03/21/17 07:00 Calcium 8.3 mg/dl (8.4-10.2) L 03/21/17 07:00 Total Bilirubin 1.1 mg/dl (0.2-1.0) H D 03/20/17 18:33 AST 58 U/L (10-42) H D 03/20/17 18:33 ALT 104 U/L (10-40) H D 03/20/17 18:33 Alkaline Phosphatase 78 U/L (32-92) D 03/20/17 18:33 Total Protein 7.4 g/dl (6.4-8.3) 03/20/17 18:33 Albumin 4.2 g/dl (3.5-5.0) 03/20/17 18:33 Active Medications Generic Name Dose Route Start Last Admin Trade Name Chante PRN Reason Stop Dose Admin Amlodipine Besylate 5 mg 03/21/17 10:00 03/21/17 09:15 Norvasc - PO 5 mg DAILY RUSSELL Administration Aspirin 81 mg 03/21/17 10:00 03/21/17 09:15 Ecotrin - PO 81 mg DAILY RUSSELL Administration Atorvastatin Calcium 20 mg 03/21/17 10:00 03/21/17 09:15 Lipitor - PO 20 mg DAILY RUSSELL Administration Clopidogrel Bisulfate 75 mg 03/21/17 10:00 03/21/17 09:15 Plavix - PO 75 mg DAILY RUSSELL Administration Sodium Chloride 1,000 mls @ 125 mls/hr 03/21/17 14:26 Normal Saline - IV ASDIR RUSSELL Melatonin 5 mg 03/21/17 02:28 03/21/17 02:40 Melatonin PO 5 mg HS PRN Administration INSOMNIA Tamsulosin HCl 0.4 mg 03/21/17 10:00 03/21/17 09:15 Flomax - PO 0.4 mg BID RUSSELL Administration IMAGING CTAP- No acute diverticulitis. fatty liver, diverticulosis ultrasound of kidney/renal/bladder: no hydronephrosis, no masses noted ASSESSMENT/PLAN: 1. nephrology acute kidney injury - creatine baseline 1.2, pre-renal secondary to hypovolemia, increase ivf to 125ml/hr - repeat bmp at 1500 - case discussed with nephrology appreciate input 2) GI Frazier's esophagus - start protonix to manage GERD - appreciate GI input, Dr Robbins, patient's private GI 3) cardiovascular hypertenson - hold losartan due to ronald, continue norvasc, b/p at goal FEN - NS@125ml/hr - Replete lytes prn - soft diet DVT Prophylaxis - OOB - SCDs - Heparin SQ Code Status: Full Code Dispo: Requires Inpatient Care Visit type - Emergency Visit Emergency Visit: Yes ED Registration Date: 03/21/17 Care time: The patient presented to the Emergency Department on the above date and was hospitalized for further evaluation of their emergent condition. - New Patient This patient is new to me today: Yes Date on this admission: 03/21/17 - Critical Care Critical Care patient: No - Discharge Referral Referred to [facility] Med [facility] No
[2017-03-21] MEDS: SODIUM CHLORIDE 1,000 ML IV SCH (15:15)
[2017-03-21] MEDS ORDERED: FAMOTIDINE IV 20 MG/12 ML VIAL IVPUSH SCH (15:30)
[2017-03-21 16:30] LABS: URINE APPEARANCE Clear; URINE BILIRUBIN Negative (NEGATIVE); URINE GLUCOSE (UA) Negative (NEGATIVE); URINE KETONE Negative (NEGATIVE); URINE LEUK ESTERASE Negative (NEGATIVE); URINE NITRITE Negative (NEGATIVE); URINE PROTEIN Negative (NEGATIVE); URINE UROBILINOGEN 0.2 (0.2-1.0)
[2017-03-21 16:31] LABS: URINE BLOOD Trace-lysed (NEGATIVE); URINE COLOR YELLOW
[2017-03-21 16:38] LABS: INR 1.22 (0.82-1.09); PROTHROMBIN TIME (PATIENT) 13.6 SEC (10.2-13.0)
[2017-03-21 16:40] LABS: ALBUMIN 3.6 g/dl (3.5-5.0); ALK PHOS 70 U/L (32-92); ANION GAP 10 (8-16); BILIRUBIN,TOTAL 0.7 mg/dl (0.2-1.0); CALCIUM 8.3 mg/dl (8.4-10.2); CO2 19 mmol/L (22-28); CREATININE 3.8 mg/dl (0.6-1.3); GLUCOSE,RANDOM 152 mg/dl (74-106); SGOT/AST 32 U/L (10-42); SGPT/ALT 66 U/L (10-40); TOT PROT 6.5 g/dl (6.4-8.3)
--- NOTE | 2017-03-21 17:52 | CONS ---
DATE OF CONSULTATION: 03/21/2017 REASON FOR CONSULTATION: Asked to evaluate this 56-year-old gentleman admitted with nausea, vomiting, and right lower quadrant abdominal pain. HISTORY OF PRESENT ILLNESS: Patient is a 56-year-old gentleman with a past history of hypertension, coronary artery disease, COPD, hiatal hernia, and diverticulosis. He does have a history of Frazier esophagus without any dysplasia and also history of diverticulosis with presumed diverticulitis last year. The patient was admitted via the emergency room with a several-day history of diarrhea, right lower quadrant pain, and possible fevers for several days. He believes these began relatively acutely and that his niece, who lives in the same house, had a similar illness which was self-limited and resolved after 24 hours. However, his discomfort persisted, and the patient was admitted via the emergency room. His hospital course has been notable for laboratory tests showing initial white count of 7.2, hematocrit of 41%, with a BUN of 34 and a creatinine of 3.6. Today's BUN was 41 and creatinine 4.1. He also had elevated AST and ALT levels of 58 and 104, with a normal alkaline phosphatase. A CAT scan (oral contrast) showed a fatty liver, no evidence of diverticulitis, and some splenomegaly. Currently, the patient is resting comfortably in bed. He has minimal right lower quadrant pain. No further diarrhea, nausea, vomiting, or fever/chills. PHYSICAL EXAMINATION: General: He is a well-developed, obese gentleman HEENT: [place] conjunctivae. Lungs: Clear. Cardiac: Regular rate and rhythm. Abdomen: Soft, flat, and there is no specific tenderness except to deep palpation in the right lower quadrant. There is no rebound, guarding, or hepatosplenomegaly palpable. IMPRESSION: Patient with what appears to be an acute gastroenteritis, presented with nausea, diarrhea, and right lower quadrant pain. However, at the present time, he has also been noted to have an elevated creatinine level of greater than 4, possibly related to dehydration. He has been having significant diarrhea with minimal p.o. intake for several days. He also has elevated serum transaminases and a CAT scan showing a fatty liver. We will repeat the liver chemistries, and if they remain elevated, would obtain viral serologies to exclude a viral hepatitis, acute. If they are improving or stable, we will continue the evaluation as an outpatient for the possibility of fatty liver. With regards to his recent gastrointestinal complaints, they appear to be resolving and would begin a p.o./diet as tolerated. Patient is scheduled to see a nursing support worker regarding the elevated serum creatinine. I will follow as needed. GIORGIO SAMPSON M.D. INGE/[id number]
[2017-03-21] MEDS ORDERED: MAG HYDROX/AL HYDROX/SIMETH 30 ML UNIT-DOSE CUP PO ONE (18:02)
[2017-03-21 18:52] LABS: URINE CREATININE 60.8 mg/dL (20-370)
[2017-03-21 21:38] LABS: URINE BACTERIA FEW /hpf (NEGATIVE)
[2017-03-22 07:50] LABS: BASOPHIL 0.4 % (0-2.0); EOSINOPHIL 3.5 % (0-4.5); MCH 30.5 pg (25.7-33.7); MCHC 34.9 g/dl (32.0-35.9); MEAN CELL VOLUME 87.5 fl (80-96); MEAN PLT VOLUME 9.8 fl (7.5-11.1); NEUTROPHILS 63.2 % (42.8-82.8); PLATELET COUNT 156 K/MM3 (134-434); RDW 13.4 % (11.9-15.9)
[2017-03-22 07:55] LABS: ALBUMIN 3.4 g/dl (3.5-5.0); ALK PHOS 73 U/L (32-92); ANION GAP 6 (8-16); BILIRUBIN,TOTAL 0.7 mg/dl (0.2-1.0); CALCIUM 8.3 mg/dl (8.4-10.2); CO2 21 mmol/L (22-28); CREATININE 3.4 mg/dl (0.6-1.3); GLUCOSE,RANDOM 115 mg/dl (74-106); MAGNESIUM 1.8 mg/dL (1.8-2.4); PHOSPHOROUS 4.1 mg/dl (2.5-4.6); SGOT/AST 22 U/L (10-42); SGPT/ALT 53 U/L (10-40); TOT PROT 6.4 g/dl (6.4-8.3)
--- NOTE | 2017-03-22 09:06 | PN ---
Physical Exam: SUBJECTIVE: Patient seen and examined at bedside. Pleasent gentleman, no distress, reports poor appetite, ate half of the breakfast OBJECTIVE: Vital Signs Period Temp Pulse Resp BP Sys/Muller Pulse Ox Last 24 Hr 97.7 F-98.3 F 76-85 18-18 127-144/71-81 96-97 GENERAL: The patient is awake, alert, and fully oriented, in no acute distress. HEAD: Normal with no signs of trauma. EYES:extraocular movements intact, sclera anicteric, conjunctiva clear. No ptosis. ENT: Ears normal, nares patent NECK: Trachea midline, full range of motion, supple. LUNGS: Breath sounds equal, clear to auscultation bilaterally, no wheezes, no crackles, no accessory muscle use. HEART: Regular rate and rhythm, S1, S2 without murmur, rub or gallop. ABDOMEN: Soft, nontender, nondistended, normoactive bowel sounds, no guarding, no rebound EXTREMITIES:no edema, no cyanosis NEUROLOGICAL: Cranial nerves II through XII grossly intact. Normal speech, gait not observed. PSYCH: Normal mood, normal affect. SKIN: Warm, dry, normal turgor, no rashes or lesions noted Laboratory Results - last 24 hr 03/21/17 03/21/17 03/21/17 14:30 15:28 16:10 WBC RBC Hgb Hct MCV MCH MCHC RDW Plt Count MPV Neutrophils % Lymphocytes % Monocytes % Eosinophils % Basophils % PT with INR 13.6 H INR 1.22 Sodium 133 L Potassium 3.7 Chloride 104 Carbon Dioxide 19 L Anion Gap 10 BUN 43 H Creatinine 3.8 H Creat Clearance w eGFR 16.44 Random Glucose 152 H D Calcium 8.3 L Phosphorus Magnesium Total Bilirubin 0.7 D AST 32 D ALT 66 H D Alkaline Phosphatase 70 Total Protein 6.5 Albumin 3.6 Urine Color Yellow Urine Appearance Clear Urine pH 5.0 [address] Specific [place] <= 1.005 Urine Protein Negative Urine Glucose (UA) Negative Urine Ketones Negative Urine Blood Trace-lysed H Urine Nitrite Negative Urine Bilirubin Negative Urine Urobilinogen 0.2 Ur Leukocyte Esterase Negative Urine RBC 2-4 Urine WBC 2-5 Urine Bacteria Few Ur Random Sodium Ur Random Potassium Ur Random Chloride Urine Creatinine 03/21/17 03/22/17 03/22/17 16:10 07:25 07:25 WBC 7.0 RBC 4.17 Hgb 12.7 Hct 36.5 MCV 87.5 MCH 30.5 MCHC 34.9 RDW 13.4 Plt Count 156 MPV 9.8 Neutrophils % 63.2 Lymphocytes % 23.9 Monocytes % 9.0 Eosinophils % 3.5 Basophils % 0.4 PT with INR INR Sodium 134 L Potassium 4.0 Chloride 107 Carbon Dioxide 21 L Anion Gap 6 L BUN 37 H Creatinine 3.4 H Creat Clearance w eGFR 18.70 Random Glucose 115 H D Calcium 8.3 L Phosphorus 4.1 Magnesium 1.8 Total Bilirubin 0.7 AST 22 D ALT 53 H Alkaline Phosphatase 73 Total Protein 6.4 Albumin 3.4 L Urine Color Urine Appearance Urine pH Ur Specific [place] Urine Protein Urine Glucose (UA) Urine Ketones Urine Blood Urine Nitrite Urine Bilirubin Urine Urobilinogen Ur Leukocyte Esterase Urine RBC Urine WBC Urine Bacteria Ur Random Sodium 65 Ur Random Potassium 7.3 L Ur Random Chloride 59 Urine Creatinine 60.8 Active Medications Generic Name Dose Route Start Last Admin Trade Name Freq PRN Reason Stop Dose Admin Amlodipine Besylate 5 mg 03/21/17 10:00 03/21/17 09:15 Norvasc - PO 5 mg DAILY RUSSELL Administration Aspirin 81 mg 03/21/17 10:00 03/21/17 09:15 Ecotrin - PO 81 mg DAILY RUSSELL Administration Atorvastatin Calcium 20 mg 03/21/17 10:00 03/21/17 09:15 Lipitor - PO 20 mg DAILY RUSSELL Administration Clopidogrel Bisulfate 75 mg 03/21/17 10:00 03/21/17 09:15 Plavix - PO 75 mg DAILY RUSSELL Administration Sodium Chloride 1,000 mls @ 125 mls/hr 03/21/17 14:26 03/21/17 15:15 Normal Saline - IV 125 mls/hr ASDIR RUSSELL Administration Melatonin 5 mg 03/21/17 02:28 03/21/17 02:40 Melatonin PO 5 mg HS PRN Administration INSOMNIA Tamsulosin HCl 0.4 mg 03/21/17 10:00 03/21/17 21:11 Flomax - PO 0.4 mg BID RUSSELL Administration IMAGING CTAP- No acute diverticulitis. fatty liver, diverticulosis ultrasound of kidney/renal/bladder: no hydronephrosis, no masses noted ASSESSMENT/PLAN: 1. 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 - start protonix to manage GERD - appreciate GI input, Dr Robbins, patient's private GI -Transaminitis(mild)-improved -advanced diet, appetite slowly improving 3) cardiovascular hypertenson-BP stable - hold losartan due to elvis, -continue norvasc FEN - NS@125ml/hr - Replete lytes prn - soft diet DVT Prophylaxis - OOB - SCDs - Heparin SQ Code Status: Full Code Dispo: continue to monitor renal function, appetite Visit type - Emergency Visit Emergency Visit: No - New Patient This patient is new to me today: Yes Date on this admission: 03/22/17 - Critical Care Critical Care patient: No - Discharge Referral Referred to [facility] No
[2017-03-22] MEDS: ASPIRIN COATED 81 MG TABLET.EC PO SCH (09:28)
[2017-03-22] MEDS: TAMSULOSIN HCL 0.4 MG CAP.ER.24H (FP) PO SCH ×2 (09:28→21:09)
[2017-03-22] MEDS: amLODIPine BESYLATE 5 MG TABLET (FP) PO SCH (09:28)
[2017-03-22] MEDS: ATORVASTATIN CA 20 MG TABLET (FP) PO SCH (09:28)
[2017-03-22] MEDS: CLOPIDOGREL BISULFATE 75 MG TABLET (FP) PO SCH (09:29)
[2017-03-22] MEDS: MUPIROCIN 2% TOPICAL OINTMENT FOR DECOLONIZATION NS SCH (21:09)
[2017-03-22] MEDS ORDERED: CHLORHEXIDINE GLUCONATE 4% CLEANSER FOR DECOLONIZATION TP SCH (22:00)
--- NOTE | 2017-03-23 07:06 | PN ---
Physical Exam: SUBJECTIVE: Patient seen and examined this AM at bedside. Pt with recent bout of abd pain, diarrhea, subjective fever with an resulting findings of ELVIS cr over 4. Uneventful overnight, no c/o today. States he had one bout of soft stool this AM, no abd pain OBJECTIVE: Vital Signs Period Temp Pulse Resp BP Sys/Muller Pulse Ox Last 24 Hr 97.5 F-98.6 F 73-80 18-19 139-149/71-86 95-98 GENERAL: The patient is awake, alert, and fully oriented, in no acute distress. HEAD: Normal with no signs of trauma. LUNGS: Breath sounds equal, clear to auscultation bilaterally, no wheezes, no crackles, no accessory muscle use. HEART: Regular rate and rhythm, S1, S2 without murmur, rub or gallop. ABDOMEN: Soft, nontender, nondistended, normoactive bowel sounds, no guarding, no rebound, no masses. EXTREMITIES: 2+ pulses, warm, well-perfused, no edema. NEUROLOGICAL: Cranial nerves II through XII grossly intact. Normal speech, gait not observed. PSYCH: Normal mood, normal affect. SKIN: Warm, dry, normal turgor, no rashes or lesions noted Laboratory Results - last 24 hr 03/22/17 03/22/17 07:25 07:25 WBC 7.0 RBC 4.17 Hgb 12.7 Hct 36.5 MCV 87.5 MCH 30.5 MCHC 34.9 RDW 13.4 Plt Count 156 MPV 9.8 Neutrophils % 63.2 Lymphocytes % 23.9 Monocytes % 9.0 Eosinophils % 3.5 Basophils % 0.4 Sodium 134 L Potassium 4.0 Chloride 107 Carbon Dioxide 21 L Anion Gap 6 L BUN 37 H Creatinine 3.4 H Creat Clearance w eGFR 18.70 Random Glucose 115 H D Calcium 8.3 L Phosphorus 4.1 Magnesium 1.8 Total Bilirubin 0.7 AST 22 D ALT 53 H Alkaline Phosphatase 73 Total Protein 6.4 Albumin 3.4 L Laboratory Tests 03/23/17 03/23/17 06:15 06:15 WBC 6.7 Hgb 12.2 Hct 35.9 Sodium 138 Potassium 4.0 Chloride 108 H Carbon Dioxide 23 Anion Gap 7 L BUN 30 H Creatinine 2.4 H D Random Glucose 110 H Magnesium 1.5 L Active Medications Generic Name Dose Route Start Last Admin Trade Name Freq PRN Reason Stop Dose Admin Amlodipine Besylate 5 mg 03/21/17 10:00 03/22/17 09:28 Norvasc - PO 5 mg DAILY RUSSELL Administration Aspirin 81 mg 03/21/17 10:00 03/22/17 09:28 Ecotrin - PO 81 mg DAILY RUSSELL Administration Atorvastatin Calcium 20 mg 03/21/17 10:00 03/22/17 09:28 Lipitor - PO 20 mg DAILY RUSSELL Administration Chlorhexidine Gluconate 1 applic 03/22/17 22:00 03/22/17 21:10 Hibiclens For Decolonization - TP 1 applic HS RUSSELL Administration Clopidogrel Bisulfate 75 mg 03/21/17 10:00 03/22/17 09:29 Plavix - PO 75 mg DAILY RUSSELL Administration Sodium Chloride 1,000 mls @ 125 mls/hr 03/21/17 14:26 03/21/17 15:15 Normal Saline - IV 125 mls/hr ASDIR RUSSELL Administration Melatonin 5 mg 03/21/17 02:28 03/21/17 02:40 Melatonin PO 5 mg HS PRN Administration INSOMNIA Mupirocin 1 applic 03/22/17 22:00 03/22/17 21:09 Bactroban Ointment (For Decolonization) - NS 03/27/17 21:59 1 applic BID RUSSELL Administration Tamsulosin HCl 0.4 mg 03/21/17 10:00 03/22/17 21:09 Flomax - PO 0.4 mg BID RUSSELL Administration ASSESSMENT/PLAN: This 56 yr old male with bout of abdominal pain and diarrhea with a finding of ELVIS of cr over 4. Hydration showing improvement of renal function. Problem List - Problems (1) Splenomegaly Assessment/Plan: -finding on CT with splenomegaly -no current c/o pain in abdomin -no leukocytosis -incidental finding will need to follow up with PCP post discharge Code(s): R16.1 - SPLENOMEGALY, NOT ELSEWHERE CLASSIFIED (2) H/O heart artery stent Assessment/Plan: - continue with ASA/Plavix Code(s): Z95.5 - PRESENCE OF CORONARY ANGIOPLASTY IMPLANT AND GRAFT (3) Renal failure, acute Assessment/Plan: -continue with IV hydration -cr down to 2.4 today -pt tolerating po fluids and denies pain -follow up with Renal re: ELVIS and discharge plans - Code(s): N17.9 - ACUTE KIDNEY FAILURE, UNSPECIFIED Qualifiers: Acute renal failure type: unspecified Qualified Code(s): N17.9 - Acute kidney failure, unspecified (4) HTN (hypertension) Assessment/Plan: -continue with norvasc for HTN Code(s): I10 - ESSENTIAL (PRIMARY) HYPERTENSION (5) HLD (hyperlipidemia) Assessment/Plan: -remains on statin Code(s): E78.5 - HYPERLIPIDEMIA, UNSPECIFIED (6) DVT prophylaxis Code(s): XLZ5622 - (7) Elevated transaminase level Assessment/Plan: -stable currently Code(s): R74.0 - NONSPEC ELEV OF LEVELS OF TRANSAMNS & LACTIC ACID DEHYDRGNSE (8) Dehydration Assessment/Plan: -IVF continue at 125, clearing cr -voiding -strict I/O -continue to monitor electrolytes and supplement as needed Code(s): E86.0 - DEHYDRATION Visit type - Emergency Visit Emergency Visit: Yes ED Registration Date: 03/21/17 Care time: The patient presented to the Emergency Department on the above date and was hospitalized for further evaluation of their emergent condition. - New Patient This patient is new to me today: Yes Date on this admission: 03/23/17 - Critical Care Critical Care patient: No - Discharge Referral Referred to [facility].: No
[2017-03-23 08:43] LABS: BASOPHIL 0.8 % (0-2.0); EOSINOPHIL 4.3 % (0-4.5); MCHC 33.9 g/dl (32.0-35.9); MEAN CELL VOLUME 88.4 fl (80-96); MEAN PLT VOLUME 9.8 fl (7.5-11.1); NEUTROPHILS 61.9 % (42.8-82.8); PLATELET COUNT 155 K/MM3 (134-434); RDW 13.4 % (11.9-15.9); WHITE BLOOD COUNT 6.7 K/mm3 (4.0-10.8)
[2017-03-23] MEDS: ASPIRIN COATED 81 MG TABLET.EC PO SCH (09:10)
[2017-03-23] MEDS: amLODIPine BESYLATE 5 MG TABLET (FP) PO SCH (09:10)
[2017-03-23] MEDS: CLOPIDOGREL BISULFATE 75 MG TABLET (FP) PO SCH (09:10)
[2017-03-23] MEDS: TAMSULOSIN HCL 0.4 MG CAP.ER.24H (FP) PO SCH ×2 (09:10→21:34)
[2017-03-23] MEDS: ATORVASTATIN CA 20 MG TABLET (FP) PO SCH (09:11)
[2017-03-23 09:19] LABS: ALBUMIN 3.7 g/dl (3.5-5.0); ALK PHOS 79 U/L (32-92); ANION GAP 7 (8-16); BILIRUBIN,TOTAL 0.6 mg/dl (0.2-1.0); CALCIUM 8.5 mg/dl (8.4-10.2); CO2 23 mmol/L (22-28); CREATININE 2.4 mg/dl (0.6-1.3); GLUCOSE,RANDOM 110 mg/dl (74-106); MAGNESIUM 1.5 mg/dL (1.8-2.4); SGOT/AST 23 U/L (10-42); SGPT/ALT 49 U/L (10-40); TOT PROT 6.6 g/dl (6.4-8.3)
[2017-03-23] MEDS ORDERED: MAGNESIUM SULF 50% (8.12 MEQ/2 ML-1 GM VIAL) IVPB ONE (11:00)
[2017-03-23] MEDS: MUPIROCIN 2% TOPICAL OINTMENT FOR DECOLONIZATION NS SCH (16:58)
[2017-03-23] MEDS: SODIUM CHLORIDE 1,000 ML IV SCH ×2 (16:58→19:18)
[2017-03-23] MEDS ORDERED: PT OWN MED DRAWER 7, Y5N ONE (21:03)
[2017-03-23] MEDS: MELATONIN 5 MG TABLETS PO PRN (21:34)
[2017-03-24 06:37] VITALS: TEMP 98
[2017-03-24 08:26] LABS: ALBUMIN 3.5 g/dl (3.5-5.0); ALK PHOS 86 U/L (32-92); ANION GAP 7 (8-16); BILIRUBIN,TOTAL 0.4 mg/dl (0.2-1.0); CALCIUM 8.6 mg/dl (8.4-10.2); CO2 25 mmol/L (22-28); CREATININE 1.5 mg/dl (0.6-1.3); GLUCOSE,RANDOM 120 mg/dl (74-106); PHOSPHOROUS 4.2 mg/dl (2.5-4.6); SGOT/AST 24 U/L (10-42); SGPT/ALT 50 U/L (10-40); TOT PROT 6.6 g/dl (6.4-8.3)
[2017-03-24 08:39] LABS: BASOPHIL 0.8 % (0-2.0); MCH 30.4 pg (25.7-33.7); MCHC 34.6 g/dl (32.0-35.9); MEAN CELL VOLUME 87.7 fl (80-96); MEAN PLT VOLUME 9.8 fl (7.5-11.1); NEUTROPHILS 64.1 % (42.8-82.8); PLATELET COUNT 172 K/MM3 (134-434); RDW 13.2 % (11.9-15.9); WHITE BLOOD COUNT 7.3 K/mm3 (4.0-10.8)
--- NOTE | 2017-03-24 09:55 | PN ---
Progress Note, Physician History of Present Illness: Pt seen and examined at bedside. He is awake and alert. His diarrhea has resolved. He is tolerating diet. He is eager to go home. - Current Medication List Current Medications: Active Medications Amlodipine Besylate (Norvasc -) 5 mg PO DAILY [facility] Last Admin: 03/23/17 09:10 Dose: 5 mg Aspirin (Ecotrin -) 81 mg PO DAILY [facility] Last Admin: 03/23/17 09:10 Dose: 81 mg Atorvastatin Calcium (Lipitor -) 20 mg PO DAILY [facility] Last Admin: 03/23/17 09:11 Dose: 20 mg Clopidogrel Bisulfate (Plavix -) 75 mg PO DAILY [facility] Last Admin: 03/23/17 09:10 Dose: 75 mg Sodium Chloride (Normal Saline -) 1,000 mls @ 125 mls/hr IV ASDIR [facility] Last Admin: 03/23/17 19:18 Dose: Not Given Melatonin (Melatonin) 5 mg PO HS PRN PRN Reason: INSOMNIA Last Admin: 03/23/17 21:34 Dose: 5 mg Tamsulosin HCl (Flomax -) 0.4 mg PO BID [facility] Last Admin: 03/23/17 21:34 Dose: 0.4 mg - Objective Vital Signs: Vital Signs Temperature 98.0 F 03/24/17 06:00 Pulse Rate 79 03/24/17 06:00 Respiratory Rate 18 03/24/17 08:23 Blood Pressure 145/83 03/24/17 06:00 O2 Sat by Pulse Oximetry (%) 95 03/24/17 08:23 Constitutional: Yes: Calm Eyes: Yes: Conjunctiva Clear HENT: Yes: Atraumatic Cardiovascular: Yes: S1, S2 Respiratory: Yes: CTA Bilaterally Gastrointestinal: Yes: Soft, Abdomen, Obese Genitourinary: Yes: WNL Musculoskeletal: Yes: WNL Edema: No Neurological: Yes: Oriented Psychiatric: Yes: Oriented Labs: CBC, BMP 03/24/17 07:40 03/24/17 07:40 INR, PTT INR 1.22 (0.82-1.09) 03/21/17 14:30 Problem List - Problems (1) Dehydration Code(s): E86.0 - DEHYDRATION (2) Diarrhea Code(s): R19.7 - DIARRHEA, UNSPECIFIED Qualifiers: Diarrhea type: unspecified type Qualified Code(s): R19.7 - Diarrhea, unspecified (3) Diverticulosis of sigmoid colon Code(s): K57.30 - DVRTCLOS OF LG INT W/O PERFORATION OR ABSCESS W/O BLEEDING (4) Elevated transaminase level Code(s): R74.0 - NONSPEC ELEV OF LEVELS OF TRANSAMNS & LACTIC ACID DEHYDRGNSE (5) HTN (hypertension) Code(s): I10 - ESSENTIAL (PRIMARY) HYPERTENSION (6) Renal failure, acute Code(s): N17.9 - ACUTE KIDNEY FAILURE, UNSPECIFIED Qualifiers: Acute renal failure type: unspecified Qualified Code(s): N17.9 - Acute kidney failure, unspecified Assessment/Plan Current Medications Generic Name Dose Route Start Last Admin Trade Name Freq PRN Reason Stop Dose Admin Amlodipine Besylate 5 mg 03/21/17 10:00 03/23/17 09:10 Norvasc - PO 5 mg DAILY RUSSELL Administration Aspirin 81 mg 03/21/17 10:00 03/23/17 09:10 Ecotrin - PO 81 mg DAILY RUSSELL Administration Atorvastatin Calcium 20 mg 03/21/17 10:00 03/23/17 09:11 Lipitor - PO 20 mg DAILY RUSSELL Administration Clopidogrel Bisulfate 75 mg 03/21/17 10:00 03/23/17 09:10 Plavix - PO 75 mg DAILY RUSSELL Administration Sodium Chloride 1,000 mls @ 125 mls/hr 03/21/17 14:26 03/23/17 19:18 Normal Saline - IV Not Given ASDIR RUSSELL Melatonin 5 mg 03/21/17 02:28 03/23/17 21:34 Melatonin PO 5 mg HS PRN Administration INSOMNIA Tamsulosin HCl 0.4 mg 03/21/17 10:00 03/23/17 21:34 Flomax - PO 0.4 mg BID RUSSELL Administration Impression 1. ELVIS 2. hyponatremia 3. BPH 4. diarrhea 5. abdominal pain 6. insomnia 7. hx diverticulosis 8. PVD 9. hyperlipidemia 10. renal cyst 11. transaminitis 12. hepatic steatosis 13. spenomegaly 14. proteinuria on UA Plan - renal function is improving - ELVIS likely from severe pre-renal disease which likely caused ATN - can see pt in office - splenomegaly should be followed up and this was discussed with pt - avoid nsaids - follow mag level and replace IV/IM if it is low - pt will keep himself hydrated - sodium is improved - lab trends reviewed - discussed with medical team
[2017-03-24] MEDS: ATORVASTATIN CA 20 MG TABLET (FP) PO SCH (09:59)
[2017-03-24] MEDS: TAMSULOSIN HCL 0.4 MG CAP.ER.24H (FP) PO SCH (09:59)
[2017-03-24] MEDS: CLOPIDOGREL BISULFATE 75 MG TABLET (FP) PO SCH (10:00)
[2017-03-24] MEDS: amLODIPine BESYLATE 5 MG TABLET (FP) PO SCH (10:00)
[2017-03-24] MEDS: ASPIRIN COATED 81 MG TABLET.EC PO SCH (10:00)
--- NOTE | 2017-03-24 10:11 | DS ---
Physical Exam: SUBJECTIVE: Patient seen and examined, patient reports feeling well, tolerating diet, denies any chest pain or shortness of breath. OBJECTIVE: This is a 56 y/o man with a past medical history of Diverticulitis. Who presents to the ED with abdominal cramping, non-bilious vomiting and diarrhea x 3 days. Patient reports having fever, chills with constant abdominal cramping. Patient reports pain to his epigastrium after eating. He reports that the vomiting resolved on Friday. Patient reports- last colonoscopy 2014- negative. Patient reports having a similar episode last August and was treated for Diverticulitis. Patient denies fever, chills, cough, SOB, CP, dysruia ER course was notable for: (1) CTAP- no Acute Diverticulitis. Fatty Liver, Diverticulosis of sigmoid colon (2) ELVIS- 34/3.6 (3) Mild transaminitis: 58/104/78 Vital Signs Period Temp Pulse Resp BP Sys/Muller Pulse Ox Last 24 Hr 97.9 F-98.2 F 66-79 18-20 141-147/69-83 95-99 PHYSICAL EXAM GENERAL: The patient is awake, alert, and fully oriented, in no acute distress. HEAD: Normal with no signs of trauma. EYES: PERRL, extraocular movements intact, sclera anicteric, conjunctiva clear. ENT: Ears normal, nares patent, oropharynx clear without exudates, moist mucous membranes. NECK: Trachea midline, full range of motion, supple. LUNGS: Breath sounds equal, clear to auscultation bilaterally, no wheezes, no crackles, no accessory muscle use. HEART: Regular rate and rhythm, S1, S2 without murmur, rub or gallop. ABDOMEN: Soft, nontender, nondistended, normoactive bowel sounds, no guarding, no rebound, + hepatosplenomegaly, no masses. EXTREMITIES: 2+ pulses, warm, well-perfused, no edema. NEUROLOGICAL: Cranial nerves II through XII grossly intact. Normal speech, gait not observed. PSYCH: Normal mood, normal affect. SKIN: Warm, dry, normal turgor, no rashes or lesions noted. LABS Laboratory Results - last 24 hr 03/24/17 03/24/17 07:40 07:40 WBC 7.3 RBC 3.86 L Hgb 11.7 Hct 33.9 L MCV 87.7 MCH 30.4 MCHC 34.6 RDW 13.2 Plt Count 172 MPV 9.8 Neutrophils % 64.1 Lymphocytes % 23.5 Monocytes % 6.6 Eosinophils % 5.0 H Basophils % 0.8 Sodium 137 Potassium 4.1 Chloride 105 Carbon Dioxide 25 Anion Gap 7 L BUN 19 H D Creatinine 1.5 H D Creat Clearance w eGFR 48.07 Random Glucose 120 H Calcium 8.6 Phosphorus 4.2 Total Bilirubin 0.4 D AST 24 ALT 50 H Alkaline Phosphatase 86 Total Protein 6.6 Albumin 3.5 IMAGING CTAP- No acute diverticulitis. fatty liver, diverticulosis ultrasound of kidney/bladder/pelvis: no hydronephroisis noted, no post void residual noted. HOSPITAL COURSE: Patient was admitted from the emergency departement for acute kidney injury, secondary to prerenal disease from diarrhea. Patient's creatine baseline 1.2,. Dr Streeter, nephology was consulted and followed patient throughout admission. Patient was given vigorous IV hydration and creatine returned close to baseline. Patient was noted to have hyponoatremia secondary to hypovolemia, resolved after gentle IV hydration. Patient's abdominal pain likely secondary to history of johns's esophagus, resolved after intiating PPI, Dr Robbins, patient's private GI was consulted. is improving(134 today) and likely due to solute loss. Blood pressure remained at goal, norvasc was continued, however, losartan was held due to ELVIS. PLAN - continue to hold losartan - strict follow up with pcp, Dr Sol within Date of Admission:03/21/17 Date of Discharge: 03/24/17 Minutes to complete discharge: 45 Discharge Summary Reason For Visit: ACUTE RENAL FAILURE Current Active Problems DVT prophylaxis (Acute) Dehydration (Acute) Diarrhea (Acute) Diverticulosis of sigmoid colon (Acute) Elevated transaminase level (Acute) H/O heart artery stent (Acute) HLD (hyperlipidemia) (Acute) HTN (hypertension) (Acute) Renal failure, acute (Acute) Splenomegaly (Acute) Vomiting and diarrhea (Acute) Condition: Improved - Instructions Diet, Activity, Other Instructions: you were admitted to the hospital for acute renal failure due to dehydration - resume regular low sodium diet - your norvasc was increased to 10mg daily and continue to hold your losartan - please follow up with your primary care physician, Dr Sol within 1 week - please follow up with Dr Streetre, dairy worker, within 2 weeks - if any new or persistent symptoms develop please return to the emergency department. Referrals: Fausto Aponte MD [Staff Physician] - 2 Weeks Tu Sol MD [Primary Care Provider] - Chani Perdomo MD [Staff Physician] - 1 Week Disposition: HOME - Home Medications Comprehensive Discharge Medication List: Ambulatory Orders Aspirin [Aspir 81] 81 mg PO DAILY 01/29/16 Atorvastatin Ca [Lipitor] 20 mg PO DAILY 02/09/16 Cholecalciferol (Vitamin D3) [Vitamin D3] 2,000 unit PO DAILY 02/09/16 Acetaminophen/Diphenhydramine [Tylenol Pm Ex-Strength Caplet] 1 each PO HS PRN 01/02/17 Pantoprazole Sodium [Protonix] 40 mg PO BID 01/02/17 Tamsulosin HCl [Flomax] 0.4 mg PO BID 01/02/17 This patient is new to me today: No Emergency Visit: Yes ED Registration Date: 03/21/17 Care time: The patient presented to the Emergency Department on the above date and was hospitalized for further evaluation of their emergent condition. Critical Care patient: No - Discharge Referral Referred to [facility].: No
[2017-03-24] MEDS ORDERED: amLODIPine BESYLATE 5 MG TABLET (FP) PO ONE (11:15)
[2017-03-24 11:20] VITALS: BP 137/89; PULSE 79
== END 2017-03-24 11:20 | disposition home or self-care (01) | DRG 460 ==
LOC: FER 17:59 → FM/S 21:22 → OBSVTOIN 03-21 09:54
PROVIDERS: ADMIT Internal Medicine; ATTEND Nurse Practitioner Family
DX: N17.9 Acute kidney failure, unspecified (principal); K22.70 Barrett's esophagus without dysplasia; J44.9 Chronic obstructive pulmonary disease, unspecified; R16.1 Splenomegaly, not elsewhere classified; E78.5 Hyperlipidemia, unspecified; F10.10 Alcohol abuse, uncomplicated; E86.0 Dehydration; Z87.891 Personal history of nicotine dependence; K52.9 Noninfective gastroenteritis and colitis, unspecified; I10 Essential (primary) hypertension; R74.0 Nonspecific elevation of levels of transaminase and lactic acid dehydrogenase [LDH]; K57.30 Diverticulosis of large intestine without perforation or abscess without bleeding; K76.0 Fatty (change of) liver, not elsewhere classified; E87.1 Hypo-osmolality and hyponatremia; N40.0 Benign prostatic hyperplasia without lower urinary tract symptoms; I73.9 Peripheral vascular disease, unspecified; G47.00 Insomnia, unspecified; K44.9 Diaphragmatic hernia without obstruction or gangrene; N28.1 Cyst of kidney, acquired; Z80.41 Family history of malignant neoplasm of ovary; Z80.8 Family history of malignant neoplasm of other organs or systems; Z80.0 Family history of malignant neoplasm of digestive organs; E66.9 Obesity, unspecified; Z68.36 Body mass index [BMI] 36.0-36.9, adult
CPT/HCPCS: 36415; 71020-TC; 74176-TC; 76775-TC; 76856-TC; 80048; 80053; 80307; 81003; 81015; 82436; 82570; 83735; 84100; 84133; 84300; 85025; 85610; 86704; 86706; 86708; 86803; 87340; 93005; 99285-25; G0378

== ENCOUNTER 2017-04-15 12:13 | Emergency (ER) | payer OTHER ==
[2017-04-15] MEDS ORDERED: SODIUM CHLORIDE 0.9% 1000 ML INFUS.BAG IV ONE (12:25)
--- NOTE | 2017-04-15 12:25 | PDOC ---
History of Present Illness - General Chief Complaint: Pain Stated Complaint: ABDOMINAL CRAMPING Time Seen by Provider: 04/15/17 12:25 - History of Present Illness Initial Comments: 04/15/17 14:08 Chief complaint: Abdominal pain PCP: Dr. Castillo History of present illness: 56 years old past medical history significant for hypertension hyperlipidemia diverticulitis, Frazier's esophagitis, hiatal hernia , peripheral artery disease, COPD/emphysema presents to the emergency department with 1 day history of lower abdominal discomfort diffuse no fever no nausea no vomiting no diarrhea had a bowel movement this morning. Symptoms are intermittent and wax and wane no clear exacerbating or alleviating factors Past History - Past Medical History Allergies/Adverse Reactions: Allergies Allergy/AdvReac Type Severity Reaction Status Date / Time lisinopril Allergy Severe Lip Verified 04/15/17 12:15 swelling Home Medications: Ambulatory Orders Aspirin [Aspir 81] 81 mg PO DAILY 01/29/16 Atorvastatin Ca [Lipitor] 20 mg PO DAILY 02/09/16 Cholecalciferol (Vitamin D3) [Vitamin D3] 2,000 unit PO DAILY 02/09/16 Pantoprazole Sodium [Protonix] 40 mg PO BID 01/02/17 Tamsulosin HCl [Flomax] 0.4 mg PO BID 01/02/17 Amlodipine Besylate [Norvasc -] 5 mg PO DAILY 04/15/17 Ciprofloxacin HCl [Cipro] 500 mg PO BID #14 tablet 04/15/17 Losartan Potassium 50 mg PO DAILY 04/15/17 Metronidazole [Flagyl -] 500 mg PO TID #21 tablet 04/15/17 Anemia: No (IN THE PAST) Asthma: No Cancer: No Cardiac Disorders: Yes CVA: No COPD: Yes (SMOKED X 35 YEARS) CHF: No (FOR CHEST PAIN AND CARDIAC W/U NEGATIVE) Dementia: No Diabetes: No GI Disorders: Yes Disorders: Yes HTN: Yes Hypercholesterolemia: Yes Liver Disease: No Seizures: No Thyroid Disease: No - Surgical History Abdominal Surgery: No Appendectomy: No Cardiac Surgery: Yes (CATHETERIZATION/1 STENT) Cholecystectomy: No Lung Surgery: No Neurologic Surgery: No Orthopedic Surgery: Yes (-LEFT KNEE ARTHROSCOPY 1992) - Suicide/Smoking/Psychosocial Hx Smoking History: Former smoker Have you smoked in the past 12 months: No Number of Cigarettes Smoked Daily: 30 If you are a former smoker, when did you quit?: 2013 Hx Alcohol Use: No Drug/Substance Use Hx: No Substance Use Type: None Hx Substance Use Treatment: No Review of Systems - Review of Systems Able to Perform ROS?: Yes Comments:: 04/15/17 14:09 ROS: A complete review of 10 out of 10 review of systems is taken and is negative apart from what is previously mentioned below and in the HPI. *Physical Exam - Physical Exam Comments: 04/15/17 14:09 Vitals: Triage Vital signs reviewed General Appearance: no acute distress, well nourished well developed, Chest Wall: Nontender Cardiac: Regular rate and rhythym, no murmurs, no rubs, no gallops, Lungs: Clear to auscultation bilateral, good air movement bilaterally, Abdomen: Soft, non distended, normal bowel sounds, diffuse lower abdominal tenderness palpation. Extremities: Full range of motion to all extremities, no cyanosis, clubbing, or edema Skin: Warm and dry, no rashes or lesions, no rash, no petechiae Psych: normal mood, normal affect ED Treatment Course - LABORATORY CBC & Chemistry Diagram: 04/15/17 12:50 04/15/17 12:50 Medical Decision Making - Medical Decision Making 04/15/17 15:03 CAT scan consistent with acute diverticulitis. Patient well-appearing no apparent distress tolerating fluids and food by mouth. Stable for outpatient discharge. We'll treat with Cipro Flagyl. Patient has an appointment tomorrow at 4 PM with his primary care provider Findings, the need for follow-up and strict return instructions discussed with patient. *DC/Admit/Observation/Transfer Diagnosis at time of Disposition: Diverticulitis Qualifiers: Diverticulitis site: large intestine Diverticulitis bleeding: without bleeding Diverticulitis complication: without perforation or abscess Qualified Code(s): K57.32 - Diverticulitis of large intestine without perforation or abscess without bleeding - Discharge Dispostion Condition at time of disposition: Stable Admit: No - Referrals - Patient Instructions Printed Discharge Instructions: Diverticulitis Additional Instructions: Take Cipro and Flagyl as prescribed. Take with an [id number] probiotic as directed on package. Drink plenty of fluids. Follow up tomorrow with your doctor. Return to the emergency department if you feel very sick fever severe abdominal pain any severe worsening symptoms or for any concerns. - Post Discharge Activity
[2017-04-15 12:36] VITALS: BP 144/82; PULSE 104; TEMP 98.1; BMI 36.1
[2017-04-15 13:13] LABS: BASO % 0.6 % (0-2.0); MCH 29.3 pg (25.7-33.7); MEAN PLT VOLUME 10.5 fl (7.5-11.1); NEUT % 70.9 % (42.8-82.8); PLATELET COUNT 171 K/MM3 (134-434); WHITE BLOOD COUNT 10.4 K/mm3 (4.0-10.8)
[2017-04-15 13:21] LABS: ALBUMIN 4.2 g/dl (3.5-5.0); ALK PHOS 89 U/L (32-92); ANION GAP 7 (8-16); BILIRUBIN,TOTAL 0.5 mg/dl (0.2-1.0); CALCIUM 9.5 mg/dl (8.4-10.2); CO2 27 mmol/L (22-28); GLUCOSE,RANDOM 168 mg/dl (74-106); SGOT/AST 45 U/L (10-42); SGPT/ALT 105 U/L (10-40); TOT PROT 7.5 g/dl (6.4-8.3)
== END 2017-04-15 15:20 | disposition home or self-care (01) ==
LOC: FER 12:13
PROC: 3E0337Z Introduction of Electrolytic and Water Balance Substance into Peripheral Vein, Percutaneous Approach (ICD-10-PCS; principal; 2017-04-15)
DX: K57.32 Diverticulitis of large intestine without perforation or abscess without bleeding (principal); I10 Essential (primary) hypertension; E78.5 Hyperlipidemia, unspecified; K22.70 Barrett's esophagus without dysplasia; J44.9 Chronic obstructive pulmonary disease, unspecified; I73.9 Peripheral vascular disease, unspecified; Z87.891 Personal history of nicotine dependence; Z95.5 Presence of coronary angioplasty implant and graft
CPT/HCPCS: 36415; 74177-TC; 80053; 85025; 99282-25

== ENCOUNTER 2018-06-15 02:03 | Inpatient (IN) | payer OTHER, MEDICARE ==
--- NOTE | 2018-06-15 02:04 | PDOC ---
History of Present Illness - General Stated Complaint: COUGH Time Seen by Provider: 06/15/18 02:04 History Source: Patient Exam Limitations: No Limitations - History of Present Illness Initial Comments: 57 yo M history HTN, HL, CAD s/p 1 stent, COPD (previous smoker) presents with 1 week history of cough. He states that he started with nasal congestion and chest congestion, then subsequently developed a fever and chills for 1-2 days. He has had persistent dry cough since then, with thick white phlegm. Denies SOB. He also became concerned when he noticed decreased urine output. He went into renal failure with a previous illness, so he was concerned that something might be wrong. Past History - Past Medical History Allergies/Adverse Reactions: Allergies Allergy/AdvReac Type Severity Reaction Status Date / Time lisinopril Allergy Severe Lip Verified 06/15/18 02:06 swelling Home Medications: Ambulatory Orders Aspirin [Aspir 81] 81 mg PO DAILY 01/29/16 Atorvastatin Ca [Lipitor] 20 mg PO DAILY 02/09/16 Cholecalciferol (Vitamin D3) [Vitamin D3] 2,000 unit PO DAILY 02/09/16 Pantoprazole Sodium [Protonix] 40 mg PO BID 01/02/17 Tamsulosin HCl [Flomax] 0.4 mg PO BID 01/02/17 Amlodipine Besylate [Norvasc -] 5 mg PO DAILY 04/15/17 Losartan Potassium 50 mg PO HS 04/15/17 L.acidoph,Paracasei, B.lactis [Probiotic] 1 each PO DAILY 11/02/17 Metformin HCl [Metformin HCl ER] 500 mg PO BID 06/15/18 Anemia: Yes (IN THE PAST) Asthma: No Cancer: No Cardiac Disorders: Yes CVA: No COPD: Yes (SMOKED X 35 YEARS) CHF: No (FOR CHEST PAIN AND CARDIAC W/U NEGATIVE) DVT: No Dementia: No Diabetes: No Dialysis: No GI Disorders: Yes (DIVERTICULITIS) Disorders: Yes HTN: Yes Hypercholesterolemia: Yes Kidney Stones: No Liver Disease: No Psychiatric Problems: No Seizures: No Thyroid Disease: No Lung CA: No - Surgical History Abdominal Surgery: No Appendectomy: No Cardiac Surgery: Yes (CATHETERIZATION/1 STENT) Cholecystectomy: No Lung Surgery: No Neurologic Surgery: No Orthopedic Surgery: Yes (-LEFT KNEE ARTHROSCOPY 1992) - Suicide/Smoking/Psychosocial Hx Smoking History: Former smoker Have you smoked in the past 12 months: No Number of Cigarettes Smoked Daily: 30 If you are a former smoker, when did you quit?: 2013 Hx Alcohol Use: No Drug/Substance Use Hx: No Substance Use Type: None Hx Substance Use Treatment: No Review of Systems - Review of Systems Able to Perform ROS?: Yes Comments:: GENERAL/CONSTITUTIONAL: No fever or chills. No weakness. HEAD, EYES, EARS, NOSE AND THROAT: No change in vision. No ear pain or discharge. No sore throat. CARDIOVASCULAR: No chest pain or shortness of breath. RESPIRATORY: +Cough. No wheezing or hemoptysis. GASTROINTESTINAL: No nausea, vomiting, diarrhea or constipation. GENITOURINARY: No dysuria, frequency. Decreased urine output. MUSCULOSKELETAL: No joint or muscle swelling or pain. No neck or back pain. SKIN: No rash. NEUROLOGIC: No headache, vertigo, loss of consciousness, or change in strength/ sensation. ENDOCRINE: No increased thirst. No abnormal weight change. HEMATOLOGIC/LYMPHATIC: No anemia, easy bleeding, or history of blood clots. ALLERGIC/IMMUNOLOGIC: No hives or skin allergy. *Physical Exam - Physical Exam Comments: GENERAL: Awake, alert, and fully oriented, in no acute distress HEAD: No signs of trauma EYES: PERRLA, EOMI, sclera anicteric, conjunctiva clear ENT: Auricles normal inspection, hearing grossly normal, nares patent, oropharynx mildly erythematous with a few scattered vesicles, no exudates. Very dry oral mucosa NECK: Normal ROM, supple, no lymphadenopathy, JVD, or masses LUNGS: Breath sounds equal, clear to auscultation bilaterally. No wheezes, and no crackles HEART: Regular rate and rhythm, normal S1 and S2, no murmurs, rubs or gallops ABDOMEN: Soft, nontender, normoactive bowel sounds. No guarding, no rebound. No masses EXTREMITIES: Normal range of motion, no edema. No clubbing or cyanosis. No cords, erythema, or tenderness NEUROLOGICAL: Cranial nerves II through XII grossly intact. Normal speech, normal gait. Motor and sensation intact SKIN: Warm, Dry, normal turgor, no rashes or lesions noted. Heart Score/ECG Review - ECG Impressions Comment:: EKG read 03:22- NSR 67 bpm with RBBB. Unchanged from prior EKG Feb 2017. ED Treatment Course - LABORATORY CBC & Chemistry Diagram: 06/15/18 02:20 06/15/18 02:20 Medical Decision Making - Medical Decision Making 06/15/18 02:15 Pt appears dehydrated on exam. Will obtain labs to check kidney function. Will give IV hydration and obtain CXR to r/o pna. 06/15/18 03:40 Results d/w patient. He appears to have hypovolemic hyponatremia, as he has had decreased urine output recently, and appears dehydrated on examination. While his sodium is 121, he is AAOx3, no changes in mental status. Last sodium was 2 months ago, low 130s. This has likely been a gradual change. Awaiting callback from hospitalist for admission. 06/15/18 03:59 Case d/w Dr. Crawford, patient accepted to hospitalist service. *DC/Admit/Observation/Transfer Diagnosis at time of Disposition: Hyponatremia, Dehydration - Discharge Dispostion Condition at time of disposition: Stable Decision to Admit order: Yes - Referrals - Patient Instructions - Post Discharge Activity
[2018-06-15] MEDS ORDERED: SODIUM CHLORIDE 1,000 ML IV STA (02:16)
[2018-06-15 02:43] LABS: BASO % 1.1 % (0-2.0); EOS % 4.2 % (0-4.5); HEMATOCRIT 39.6 % (35.4-49); HEMOGLOBIN 14.2 GM/dL (11.7-16.9); LYMPH % 20.4 % (8-40); MCH 31.3 pg (25.7-33.7); MCHC 35.8 g/dl (32.0-35.9); MEAN CELL VOLUME 87.3 fl (80-96); MEAN PLT VOLUME 9.2 fl (7.5-11.1); MONO % 11.8 % (3.8-10.2); NEUT % 62.5 % (42.8-82.8); PLATELET COUNT 162 K/MM3 (134-434); RBC 4.54 M/mm3 (4.00-5.60); RDW 14.6 % (11.9-15.9); WHITE BLOOD COUNT 6.3 K/mm3 (4.0-10.0)
[2018-06-15 03:09] LABS: ALK PHOS 98 U/L (45-117); ANION GAP 7 MMOL/L (8-16); BILIRUBIN,TOTAL 0.9 mg/dL (0.2-1); BLOOD UREA NITROGEN 13 mg/dL (7-18); CALCIUM 8.5 mg/dL (8.5-10.1); CHLORIDE 86 mmol/L (98-107); CO2 29 mmol/L (21-32); GLUCOSE,RANDOM 143 mg/dL (74-106); POTASSIUM 4.1 mmol/L (3.5-5.1); SGOT/AST 53 U/L (15-37); SGPT/ALT 100 U/L (13-61); SODIUM 121 mmol/L (136-145); TOT PROT 7.9 g/dl (6.4-8.2)
[2018-06-15 05:20] VITALS: BMI 35.5
[2018-06-15 05:22] LABS: ANION GAP 5 MMOL/L (8-16); BLOOD UREA NITROGEN 13 mg/dL (7-18); CALCIUM 7.7 mg/dL (8.5-10.1); CHLORIDE 90 mmol/L (98-107); CO2 28 mmol/L (21-32); CREATININE 0.9 mg/dL (0.55-1.3); GLUCOSE,RANDOM 122 mg/dL (74-106); MAGNESIUM 1.7 mg/dL (1.8-2.4); PHOSPHOROUS 2.9 mg/dL (2.5-4.9); POTASSIUM 3.9 mmol/L (3.5-5.1); SODIUM 123 mmol/L (136-145)
[2018-06-15] MEDS ORDERED: SODIUM CHLORIDE 1,000 ML IV SCH ×5 (06:00→21:55)
--- NOTE | 2018-06-15 08:21 | HP ---
CHIEF COMPLAINT: "I felt dehydrated." PCP: Dr. Sol HISTORY OF PRESENT ILLNESS: 57 year-old male with a PMH significant for HTN, HLD, CAD s/p stent, PAD s/p stents, COPD, BPH, diverticulosis/diverticulitis, GERD/Frazier's esophagus, and h/o ELVIS in setting of dehydration. Patient presented to the ED earlier this morning with a complaint of feeling dehydrated. Patient has had upper respiratory symptoms for several days. Yesterday he developed right-sided flank pain which he states was similar to when he was previously dehydrated so he drank 1-1.5 gallons of water. He was unsteady on his feet yesterday; when walking he was [place] stay [place]. He had difficulty urinating last night, but this resolved before he came to the ED. He is now voiding freely. Patient denies recent alcohol use, last drink was at [place]. ER course was notable for: (1) Na 121 Recent Travel: No PAST MEDICAL HISTORY: Hypertension Hyperlipidemia Coronary artery disease Peripheral vascular disease COPD BPH Diverticulosis/diverticulitis GERD/Frazier's esophagus Overactive bladder Acute renal failure PAST SURGICAL HISTORY: Coronary artery stent Peripheral vascular stents Left knee arthroscopy Social History: Smoking: quit 2013 Alcohol: Drugs: Family History: Allergies lisinopril Allergy (Severe, Verified 06/15/18 02:06) Lip swelling had been on medication approx 10 yrs before reaction HOME MEDICATIONS: Home Medications Medication Instructions Recorded Aspirin [Aspir 81] 81 mg PO DAILY 01/29/16 Atorvastatin Ca [Lipitor] 20 mg PO DAILY 02/09/16 Cholecalciferol (Vitamin D3) 2,000 unit PO DAILY 02/09/16 [Vitamin D3] Pantoprazole Sodium [Protonix] 40 mg PO BID 01/02/17 Tamsulosin HCl [Flomax] 0.4 mg PO BID 01/02/17 Amlodipine Besylate [Norvasc -] 5 mg PO DAILY 04/15/17 Losartan Potassium 50 mg PO HS 04/15/17 L.acidoph,Paracasei, B.lactis 1 each PO DAILY 11/02/17 [Probiotic] Metformin HCl [Metformin HCl ER] 500 mg PO BID 06/15/18 REVIEW OF SYSTEMS CONSTITUTIONAL: Absent: fever, chills, diaphoresis, generalized weakness, malaise, loss of appetite, weight change HEENT: Absent: rhinorrhea, nasal congestion, throat pain, throat swelling, difficulty swallowing, mouth swelling, ear pain, eye pain, visual changes CARDIOVASCULAR: Absent: chest pain, syncope, palpitations, irregular heart rate, lightheadedness , peripheral edema RESPIRATORY: Absent: cough, shortness of breath, dyspnea with exertion, orthopnea, wheezing, stridor, hemoptysis GASTROINTESTINAL: Absent: abdominal pain, abdominal distension, nausea, vomiting, diarrhea, constipation, melena, hematochezia GENITOURINARY: +hesitancy; right-sided flank pain Absent: dysuria, frequency, urgency, hesitancy, hematuria, flank pain, genital pain MUSCULOSKELETAL: Absent: myalgia, arthralgia, joint swelling, back pain, neck pain SKIN: Absent: rash, itching, pallor HEMATOLOGIC/IMMUNOLOGIC: Absent: easy bleeding, easy bruising, lymphadenopathy, frequent infections ENDOCRINE: Absent: unexplained weight gain, unexplained weight loss, heat intolerance, cold intolerance NEUROLOGIC: Absent: headache, focal weakness or paresthesias, dizziness, unsteady gait, seizure, mental status changes, bladder or bowel incontinence PSYCHIATRIC: Absent: anxiety, depression, suicidal or homicidal ideation, hallucinations. PHYSICAL EXAMINATION Vital Signs - 24 hr 06/15/18 06/15/18 06/15/18 02:07 02:27 04:30 Temperature 97.9 F Pulse Rate 72 Pulse Rate [ 67 Left] Respiratory 18 18 Rate Blood Pressure 134/79 Blood Pressure 115/70 [Right Arm] O2 Sat by Pulse 98 97 97 Oximetry (%) 06/15/18 05:10 Temperature 98.5 F Pulse Rate 78 Pulse Rate [ Left] Respiratory 20 Rate Blood Pressure 133/84 Blood Pressure [Right Arm] O2 Sat by Pulse 95 Oximetry (%) GENERAL: Awake, alert, and fully oriented, in no acute distress. HEAD: Normal with no signs of trauma. EYES: Pupils equal, round and reactive to light, extraocular movements intact, sclera anicteric, conjunctiva clear. No lid lag. EARS, NOSE, THROAT: Ears normal, nares patent, oropharynx clear without exudates. Dry mucous membranes. LUNGS: Breath sounds equal, clear to auscultation bilaterally. No wheezes, and no crackles. No accessory muscle use. HEART: Regular rate and rhythm, normal S1 and S2 ABDOMEN: Soft, nontender, not distended, normoactive bowel sounds UPPER EXTREMITIES: 2+ pulses, warm, well-perfused. No cyanosis. No clubbing. No peripheral edema. LOWER EXTREMITIES: 2+ pulses, warm, well-perfused. No calf tenderness. No peripheral edema. NEUROLOGICAL: Cranial nerves II-XII intact. Normal speech. Self-positions easily. PSYCHIATRIC: Cooperative. Good eye contact. Appropriate mood and affect. SKIN: Warm, dry, normal turgor Laboratory Results - last 24 hr 06/15/18 06/15/18 06/15/18 02:20 02:20 04:09 WBC 6.3 RBC 4.54 Hgb 14.2 Hct 39.6 MCV 87.3 MCH 31.3 MCHC 35.8 RDW 14.6 Plt Count 162 MPV 9.2 Absolute Neuts (auto) 4.0 Neutrophils % 62.5 Lymphocytes % 20.4 Monocytes % 11.8 H Eosinophils % 4.2 Basophils % 1.1 Nucleated RBC % 0 Sodium 121 L 123 L Potassium 4.1 3.9 Chloride 86 L 90 L Carbon Dioxide 29 28 Anion Gap 7 L 5 L BUN 13 13 Creatinine 1.0 0.9 Creat Clearance w eGFR > 60 > 60 Random Glucose 143 H 122 H Calcium 8.5 7.7 L Phosphorus 2.9 Magnesium 1.7 L Total Bilirubin 0.9 AST 53 H ALT 100 H Alkaline Phosphatase 98 Total Protein 7.9 Albumin 4.0 Urine Protein 06/15/18 05:00 WBC RBC Hgb Hct MCV MCH MCHC RDW Plt Count MPV Absolute Neuts (auto) Neutrophils % Lymphocytes % Monocytes % Eosinophils % Basophils % Nucleated RBC % Sodium Potassium Chloride Carbon Dioxide Anion Gap BUN Creatinine Creat Clearance w eGFR Random Glucose Calcium Phosphorus Magnesium Total Bilirubin AST ALT Alkaline Phosphatase Total Protein Albumin Urine Protein 22 H ASSESSMENT/PLAN 57 year-old male with a PMH significant for HTN, HLD, CAD, PVD, COPD, BPH, and h /o ELVIS in setting of dehydration. Admitted for metabolic encephalopathy secondary to hyponatremia. Metabolic encephalopathy secondary to hypovolemic hyponatremia --unsteady gait yesterday, felt "equilibrium was off" --Na 121 on admission, now 126 --FeNa 0.5%, pre-renal --NS @ 75mL/hr; avoid overcorrection in 24 hour period; check bmp, Mg q8h Elevated transaminases --mildly elevated AST, ALT --continue to trend Hypertension --BP stable --continue losartan Hyperlipidemia --continue Lipitor Coronary artery disease s/p stenting Peripheral vascular disease s/p stenting --continue ASA, Plavix, Lipitor COPD --stable BPH --continue tamsulosin BID GERD/Frazier's esophagus --continue Protonix BID Hypmagnesemia --repleted FEN Fluids: NS@75mL/hr Electrolytes: replete as indicated Nutrition: regular diet DVT prophylaxis: subq heparin Dispo: continues to require inpatient care. Full code. Visit type - Emergency Visit Emergency Visit: Yes ED Registration Date: 06/15/18 Care time: The patient presented to the Emergency Department on the above date and was hospitalized for further evaluation of their emergent condition. - New Patient This patient is new to me today: Yes Date on this admission: 06/15/18 - Critical Care Critical Care patient: No
[2018-06-15 08:58] LABS: ANION GAP 9 MMOL/L (8-16); BLOOD UREA NITROGEN 12 mg/dl (7-18); CALCIUM 8.5 mg/dl (8.5-10); CHLORIDE 90 mmol/L (98-107); CO2 24 mmol/L (21-32); CREATININE 0.9 mg/dl (0.55-1.3); GLUCOSE,RANDOM 118 mg/dl (74-106); POTASSIUM 4.1 mmol/L (3.5-5.1); SODIUM 123 mmol/L (136-145)
--- NOTE | 2018-06-15 09:44 | EKG ---
Test Reason : Blood Pressure : / mmHG Vent. Rate : 067 BPM Atrial Rate : 067 BPM P-R Int : 156 ms QRS Dur : 146 ms QT Int : 450 ms P-R-T Axes : 039 069 077 degrees QTc Int : 475 ms NORMAL SINUS RHYTHM RIGHT BUNDLE BRANCH BLOCK ABNORMAL ECG WHEN COMPARED WITH ECG OF 20-MAR-2017 18:53, NO SIGNIFICANT CHANGE WAS FOUND Confirmed by ROCCO FARAH MD ([id number]) on 06/15/2018 9:43:51 AM Referred By: MD VOGEL Confirmed By:ROCCO FARAH MD
[2018-06-15] MEDS ORDERED: MAGNESIUM SULF 50% (8.12 MEQ/2 ML-1 GM VIAL) IVPB ONE (09:49)
[2018-06-15] MEDS ORDERED: MAGNESIUM SULFATE IN WATER 2 GM/50 ML IVPB IVPB ONE (10:00)
[2018-06-15] MEDS ORDERED: PATIENT'S OWN MEDICATION (NON-FORMULARY) (L.Acidoph,Paracasei, B.Lactis [Probiotic] 1 EACH PO SCH (10:00)
[2018-06-15] MEDS: CHOLECALCIFEROL (VITAMIN D3) 1,000 UNIT TABLET (FP) PO SCH (10:55)
[2018-06-15] MEDS: CLOPIDOGREL BISULFATE 75 MG TABLET (FP) PO SCH (10:56)
[2018-06-15] MEDS: amLODIPine BESYLATE 10 MG TABLET (FP) PO SCH (10:56)
[2018-06-15] MEDS: ASPIRIN COATED 81 MG TABLET.EC PO SCH (10:56)
[2018-06-15] MEDS: PANTOPRAZOLE 40 MG TABLET (FP) PO SCH ×2 (10:58→21:43)
[2018-06-15] MEDS: LACTOBACILLUS ACIDOPHILUS 1 TABLET PO SCH (10:58)
[2018-06-15] MEDS: HEPARIN NA (PORCINE) 5,000 UNITS/ML 1ML VIAL SQ SCH ×2 (10:58→21:43)
--- NOTE | 2018-06-15 12:01 | CONSULT ---
Consult Consult Specialty:: Nephrology Reason for Consultation:: hyponatremia - History of Present Illness Chief Complaint: cough and nasal congestion History of Present Illness: Pt is a 57 year old make with pmhx of HTN, HLD, CAD, and COPD who presents to the ER with cough and nasal congestion. He says that he contracted a cold from his brother. He complains of fever for the last few days. He feels cough is dry. He was found to be hyponatremic and I was called to evaluate him. He says that he felt himself getting dyhdrated and drank a gallon and a half of water. He has not had much appetite. - History Source History Provided By: Patient - Past Medical History Cardio/Vascular: Yes: HTN, Hyperlipdemia Pulmonary: Yes: COPD Gastrointestinal: Yes: GERD, Other (Frazier's esophagus) Renal/: Yes: BPH - Alcohol/Substance Use Hx Alcohol Use: No - Smoking History Smoking history: Former smoker Have you smoked in the past 12 months: No Aproximately how many cigarettes per day: 30 If you are a former smoker, when did you quit?: 2014 Home Medications - Allergies Allergies/Adverse Reactions: Allergies Allergy/AdvReac Type Severity Reaction Status Date / Time lisinopril Allergy Severe Lip Verified 06/15/18 02:06 swelling - Home Medications Home Medications: Ambulatory Orders Aspirin [Aspir 81] 81 mg PO DAILY 01/29/16 Atorvastatin Ca [Lipitor] 20 mg PO DAILY 02/09/16 Cholecalciferol (Vitamin D3) [Vitamin D3] 2,000 unit PO DAILY 02/09/16 Pantoprazole Sodium [Protonix] 40 mg PO BID 01/02/17 Tamsulosin HCl [Flomax] 0.4 mg PO BID 01/02/17 Amlodipine Besylate [Norvasc -] 5 mg PO DAILY 04/15/17 Losartan Potassium 50 mg PO HS 04/15/17 L.acidoph,Paracasei, B.lactis [Probiotic] 1 each PO DAILY 11/02/17 Metformin HCl [Metformin HCl ER] 500 mg PO BID 06/15/18 Review of Systems - Review of Systems Constitutional: reports: Chills, Fever, Malaise HENT: reports: Other (runny nose) Neck: reports: No Symptoms Cardiovascular: reports: No Symptoms Respiratory: reports: Cough Gastrointestinal: reports: No Symptoms Genitourinary: reports: No Symptoms Musculoskeletal: reports: No Symptoms Integumentary: reports: No Symptoms Neurological: reports: No Symptoms Endocrine: reports: No Symptoms Hematology/Lymphatic: reports: No Symptoms Psychiatric: reports: No Symptoms Physical Exam Vital Signs: Vital Signs Temperature 97.6 F 06/15/18 08:00 Pulse Rate 76 06/15/18 08:00 Respiratory Rate 18 06/15/18 08:00 Blood Pressure 129/76 06/15/18 08:00 O2 Sat by Pulse Oximetry (%) 95 06/15/18 09:11 Constitutional: Yes: Calm Eyes: Yes: Conjunctiva Clear HENT: Yes: Atraumatic Cardiovascular: Yes: S1, S2 Respiratory: Yes: CTA Bilaterally Gastrointestinal: Yes: Soft, Abdomen, Obese Renal/: Yes: WNL Musculoskeletal: Yes: WNL Edema: No Neurological: Yes: Oriented Psychiatric: Yes: Oriented Labs: CBC, BMP 06/15/18 02:20 Laboratory Tests 03/21/17 03/23/17 03/24/17 16:10 06:15 07:40 WBC Hgb Sodium BUN 19 H D Creatinine 1.5 H D Serum Osmolality Magnesium 1.5 L Urine Protein Negative Urine Blood Urine Osmolality Ur Random Sodium Urine Creatinine 03/24/17 06/15/18 06/15/18 07:40 02:20 04:09 WBC 6.3 Hgb 14.2 Sodium 123 L BUN Creatinine Serum Osmolality Magnesium Pending Urine Protein Urine Blood Urine Osmolality Ur Random Sodium Urine Creatinine 06/15/18 06/15/18 06/15/18 05:00 05:00 08:16 WBC Hgb Sodium 123 L BUN Creatinine Serum Osmolality Magnesium Urine Protein Negative Urine Blood Negative Urine Osmolality Ur Random Sodium 47 Urine Creatinine 65.2 06/15/18 06/15/18 06/15/18 08:16 09:24 11:54 WBC Hgb Sodium 126 L BUN Creatinine Serum Osmolality 258 L Magnesium Urine Protein Urine Blood Urine Osmolality 313 Ur Random Sodium Urine Creatinine 06/15/18 15:59 WBC Hgb Sodium 126 L BUN Creatinine Serum Osmolality Magnesium Urine Protein Urine Blood Urine Osmolality Ur Random Sodium Urine Creatinine Imaging - Results Chest X-ray: Report Reviewed Problem List - Problems (1) Dehydration Code(s): E86.0 - DEHYDRATION (2) Hyponatremia Code(s): E87.1 - HYPO-OSMOLALITY AND HYPONATREMIA Assessment/Plan Current Medications Generic Name Dose Route Start Last Admin Trade Name Chante PRN Reason Stop Dose Admin Amlodipine Besylate 5 mg 06/15/18 10:00 06/15/18 10:56 Norvasc - PO 5 mg DAILY RUSSELL Administration Aspirin 81 mg 06/15/18 10:00 06/15/18 10:56 Ecotrin - PO 81 mg DAILY RUSSELL Administration Atorvastatin Calcium 20 mg 06/15/18 22:00 Lipitor - PO HS RUSSELL Cholecalciferol 2,000 unit 06/15/18 10:00 06/15/18 10:55 Vitamin D3 - PO 2,000 unit DAILY RUSSELL Administration Clopidogrel Bisulfate 75 mg 06/15/18 10:00 06/15/18 10:56 Plavix - PO 75 mg DAILY RUSSELL Administration Heparin Sodium (Porcine) 5,000 unit 06/15/18 10:00 06/15/18 10:58 Heparin - SQ 5,000 unit BID RUSSELL Administration Sodium Chloride 1,000 mls @ 50 mls/hr 06/15/18 06:00 06/15/18 07:00 Normal Saline - IV 06/16/18 05:46 50 mls/hr ASDIR RUSSELL Administration Lactobacillus Acidophilus 1 tab 06/15/18 10:00 06/15/18 10:58 Bacid - PO 1 tab DAILY RUSSELL Administration Losartan Potassium 50 mg 06/15/18 22:00 Cozaar - PO HS RUSSELL Pantoprazole Sodium 40 mg 06/15/18 10:15 06/15/18 10:58 Protonix - PO 40 mg BID RUSSELL Administration Tamsulosin HCl 0.4 mg 06/15/18 18:30 Flomax - PO BID@0830,1830 [facility] Impression 1. URI 2. hyponatremia 3. BPH 4. hepatic steatosis 5. abdominal pain 6. insomnia 7. hx diverticulosis 8. PVD 9. hyperlipidemia 10. renal cyst 11. transaminitis 12. hx spenomegaly Plan - sodium is improving with saline - cont saline - monitor sodium levels - likely secondary to acute process - pt at risk to fall with this level sodium, nurse to assist pt when walking - restrict free water Dr Perdomo
[2018-06-15 12:11] LABS: URINE CREATININE 65.2 mg/dL (30-320)
[2018-06-15 12:41] LABS: ANION GAP 11 MMOL/L (8-16); BLOOD UREA NITROGEN 12 mg/dl (7-18); CALCIUM 8.7 mg/dl (8.5-10); CHLORIDE 92 mmol/L (98-107); CO2 23 mmol/L (21-32); CREATININE 0.8 mg/dl (0.55-1.3); GLUCOSE,RANDOM 106 mg/dl (74-106); POTASSIUM 4.2 mmol/L (3.5-5.1); SODIUM 126 mmol/L (136-145)
[2018-06-15 12:46] LABS: URINE APPEARANCE CLEAR; URINE BILIRUBIN NEGATIVE (<2.0 mg/dL); URINE COLOR YELLOW; URINE GLUCOSE (UA) NEGATIVE (NEGATIVE); URINE KETONE NEGATIVE (NEGATIVE); URINE LEUK ESTERASE NEGATIVE (NEGATIVE); URINE NITRITE NEGATIVE (NEGATIVE); URINE PROTEIN NEGATIVE (NEGATIVE)
[2018-06-15 12:47] LABS: URINE UROBILINOGEN NORMAL mg/dL (0.2-1.0)
[2018-06-15 16:27] LABS: ANION GAP 8 MMOL/L (8-16); BLOOD UREA NITROGEN 14 mg/dl (7-18); CALCIUM 8.5 mg/dl (8.5-10); CHLORIDE 93 mmol/L (98-107); CO2 25 mmol/L (21-32); GLUCOSE,RANDOM 155 mg/dl (74-106); POTASSIUM 3.5 mmol/L (3.5-5.1); SODIUM 126 mmol/L (136-145)
[2018-06-15] MEDS: INSULIN (NOVOLOG) ASPART 100 UNITS/ML 10ML VIAL SQ SCH ×2 (17:41→21:47)
[2018-06-15] MEDS ORDERED: TAMSULOSIN HCL 0.4 MG CAP PO SCH (18:30)
[2018-06-15 20:55] LABS: ANION GAP 6 MMOL/L (8-16); BLOOD UREA NITROGEN 16 mg/dl (7-18); CALCIUM 8.9 mg/dl (8.5-10); CHLORIDE 95 mmol/L (98-107); CO2 29 mmol/L (21-32); CREATININE 0.9 mg/dl (0.55-1.3); GLUCOSE,RANDOM 80 mg/dl (74-106); MAGNESIUM 2.3 mg/dL (1.8-2.4); POTASSIUM 4.2 mmol/L (3.5-5.1); SODIUM 130 mmol/L (136-145)
[2018-06-15 21:00] LABS: ALBUMIN 4.2 g/dl (3.4-5.0); BILIRUBIN,DIRECT 0.2 mg/dL (0.0-0.2); BILIRUBIN,TOTAL 0.6 mg/dl (0.2-1); TOT PROT 7.9 g/dl (6.4-8.2)
--- NOTE | 2018-06-15 21:27 | EKG ---
Test Reason : Blood Pressure : / mmHG Vent. Rate : 070 BPM Atrial Rate : 070 BPM P-R Int : 164 ms QRS Dur : 146 ms QT Int : 448 ms P-R-T Axes : 045 078 080 degrees QTc Int : 483 ms NORMAL SINUS RHYTHM RIGHT BUNDLE BRANCH BLOCK ABNORMAL ECG WHEN COMPARED WITH ECG OF 15-JUN-2018 03:23, NO SIGNIFICANT CHANGE WAS FOUND Confirmed by ROCCO FARAH MD ([id number]) on 06/15/2018 9:27:48 PM Referred By: BOB CHAVIS Confirmed By:ROCCO FARAH MD
[2018-06-15] MEDS ORDERED: ATORVASTATIN CA 20 MG TABLET (FP) PO SCH (22:00)
[2018-06-15] MEDS ORDERED: LOSARTAN POTASSIUM 50 MG TABLET (FP) PO SCH (22:00)
[2018-06-16 00:53] LABS: ANION GAP 7 MMOL/L (8-16); BLOOD UREA NITROGEN 13 mg/dL (7-18); CALCIUM 8.1 mg/dL (8.5-10.1); CHLORIDE 96 mmol/L (98-107); CO2 27 mmol/L (21-32); CREATININE 0.8 mg/dL (0.55-1.3); GLUCOSE,RANDOM 111 mg/dL (74-106); SODIUM 130 mmol/L (136-145)
[2018-06-16] MEDS: INSULIN (NOVOLOG) ASPART 100 UNITS/ML 10ML VIAL SQ SCH ×2 (06:22→11:50)
[2018-06-16 07:47] LABS: BASO % 0.7 % (0-2.0); EOS % 3.6 % (0-4.5); HEMATOCRIT 39.9 % (35.4-49); HEMOGLOBIN 13.7 GM/dl (11.7-16.9); LYMPH % 26.6 % (8-40); MCH 30.5 pg (25.7-33.7); MCHC 34.3 g/dl (32.0-35.9); MEAN CELL VOLUME 89.1 fl (80-96); MEAN PLT VOLUME 9.4 fl (7.5-11.1); MONO % 11.2 % (3.8-10.2); NEUT % 57.9 % (42.8-82.8); PLATELET COUNT 175 K/MM3 (134-434); RBC 4.47 M/mm3 (4.00-5.60); RDW 13.8 % (11.9-15.9); WHITE BLOOD COUNT 5.4 K/mm3 (4.0-10.8)
[2018-06-16 07:58] LABS: ALK PHOS 80 U/L (45-117); ANION GAP 6 MMOL/L (8-16); BILIRUBIN,TOTAL 0.7 mg/dl (0.2-1); BLOOD UREA NITROGEN 12 mg/dl (7-18); CALCIUM 8.5 mg/dl (8.5-10); CHLORIDE 96 mmol/L (98-107); CO2 27 mmol/L (21-32); CREATININE 0.8 mg/dl (0.55-1.3); GLUCOSE,RANDOM 132 mg/dl (74-106); POTASSIUM 4.2 mmol/L (3.5-5.1); SGOT/AST 38 U/L (15-37); SGPT/ALT 81 U/L (13-61); SODIUM 129 mmol/L (136-145); TOT PROT 7.4 g/dl (6.4-8.2)
[2018-06-16 08:09] LABS: BILIRUBIN,DIRECT 0.1 mg/dL (0.0-0.2)
[2018-06-16] MEDS ORDERED: SODIUM CHLORIDE 1,000 ML IV SCH (08:30)
[2018-06-16] MEDS: ASPIRIN COATED 81 MG TABLET.EC PO SCH (10:17)
[2018-06-16] MEDS: CLOPIDOGREL BISULFATE 75 MG TABLET (FP) PO SCH (10:17)
[2018-06-16] MEDS: PANTOPRAZOLE 40 MG TABLET (FP) PO SCH (10:17)
[2018-06-16] MEDS: LACTOBACILLUS ACIDOPHILUS 1 TABLET PO SCH (10:17)
[2018-06-16] MEDS: amLODIPine BESYLATE 10 MG TABLET (FP) PO SCH (10:19)
[2018-06-16] MEDS: CHOLECALCIFEROL (VITAMIN D3) 1,000 UNIT TABLET (FP) PO SCH (10:19)
[2018-06-16] MEDS: HEPARIN NA (PORCINE) 5,000 UNITS/ML 1ML VIAL SQ SCH (10:20)
[2018-06-16 13:30] LABS: ANION GAP 6 MMOL/L (8-16); BLOOD UREA NITROGEN 13 mg/dl (7-18); CALCIUM 8.2 mg/dl (8.5-10); CHLORIDE 99 mmol/L (98-107); CO2 23 mmol/L (21-32); CREATININE 0.8 mg/dl (0.55-1.3); GLUCOSE,RANDOM 173 mg/dl (74-106); POTASSIUM 3.6 mmol/L (3.5-5.1); SODIUM 128 mmol/L (136-145)
[2018-06-16 14:05] VITALS: BP 112/69; PULSE 80; TEMP 98.4
--- NOTE | 2018-06-16 14:29 | PN ---
Physical Exam: SUBJECTIVE: Patient seen and examined OBJECTIVE: Vital Signs Period Temp Pulse Resp BP Sys/Muller Pulse Ox Last 24 Hr 97.8 F-98.4 F 72-97 17-20 112-142/69-78 95-96 GENERAL: The patient is awake, alert, and fully oriented, in no acute distress. HEAD: Normal with no signs of trauma. EYES: PERRL, extraocular movements intact, sclera anicteric, conjunctiva clear. No ptosis. ENT: Ears normal, nares patent, oropharynx clear without exudates, moist mucous membranes. NECK: Trachea midline, full range of motion, supple. LUNGS: Breath sounds equal, clear to auscultation bilaterally, no wheezes, no crackles, no accessory muscle use. HEART: Regular rate and rhythm, S1, S2 without murmur, rub or gallop. ABDOMEN: Soft, nontender, nondistended, normoactive bowel sounds, no guarding, no rebound, no hepatosplenomegaly, no masses. EXTREMITIES: 2+ pulses, warm, well-perfused, no edema. NEUROLOGICAL: Cranial nerves II through XII grossly intact. Normal speech, gait not observed. PSYCH: Normal mood, normal affect. SKIN: Warm, dry, normal turgor, no rashes or lesions noted Laboratory Results - last 24 hr 06/15/18 06/15/18 06/15/18 15:59 20:15 20:15 WBC RBC Hgb Hct MCV MCH MCHC RDW Plt Count MPV Absolute Neuts (auto) Neutrophils % Lymphocytes % Monocytes % Eosinophils % Basophils % Sodium 126 L 130 L Potassium 3.5 4.2 Chloride 93 L 95 L Carbon Dioxide 25 29 Anion Gap 8 6 L BUN 14 16 Creatinine 1.0 0.9 Creat Clearance w eGFR > 60 > 60 POC Glucometer Random Glucose 155 H 80 Calcium 8.5 8.9 Magnesium 2.3 Total Bilirubin 0.6 Direct Bilirubin 0.2 AST 48 H ALT 86 H Alkaline Phosphatase 87 Total Protein 7.9 Albumin 4.2 06/15/18 06/16/18 06/16/18 21:46 00:01 05:28 WBC RBC Hgb Hct MCV MCH MCHC RDW Plt Count MPV Absolute Neuts (auto) Neutrophils % Lymphocytes % Monocytes % Eosinophils % Basophils % Sodium 130 L Potassium 4.0 Chloride 96 L Carbon Dioxide 27 Anion Gap 7 L BUN 13 Creatinine 0.8 Creat Clearance w eGFR > 60 POC Glucometer 116 131 Random Glucose 111 H Calcium 8.1 L Magnesium Total Bilirubin Direct Bilirubin AST ALT Alkaline Phosphatase Total Protein Albumin 06/16/18 06/16/18 06/16/18 07:05 07:05 11:48 WBC 5.4 RBC 4.47 Hgb 13.7 Hct 39.9 MCV 89.1 MCH 30.5 MCHC 34.3 RDW 13.8 Plt Count 175 D MPV 9.4 Absolute Neuts (auto) 3.2 Neutrophils % 57.9 D Lymphocytes % 26.6 D Monocytes % 11.2 H D Eosinophils % 3.6 Basophils % 0.7 Sodium 129 L Potassium 4.2 Chloride 96 L Carbon Dioxide 27 Anion Gap 6 L BUN 12 Creatinine 0.8 Creat Clearance w eGFR > 60 POC Glucometer 113 Random Glucose 132 H Calcium 8.5 Magnesium 2.0 Total Bilirubin 0.7 Direct Bilirubin 0.1 AST 38 H ALT 81 H Alkaline Phosphatase 80 Total Protein 7.4 Albumin 4.0 06/16/18 12:56 WBC RBC Hgb Hct MCV MCH MCHC RDW Plt Count MPV Absolute Neuts (auto) Neutrophils % Lymphocytes % Monocytes % Eosinophils % Basophils % Sodium 128 L Potassium 3.6 Chloride 99 Carbon Dioxide 23 Anion Gap 6 L BUN 13 Creatinine 0.8 Creat Clearance w eGFR > 60 POC Glucometer Random Glucose 173 H Calcium 8.2 L Magnesium Total Bilirubin Direct Bilirubin AST ALT Alkaline Phosphatase Total Protein Albumin Active Medications Generic Name Dose Route Start Last Admin Trade Name Freq PRN Reason Stop Dose Admin Amlodipine Besylate 5 mg 06/15/18 10:00 06/16/18 10:19 Norvasc - PO 5 mg DAILY RUSSELL Administration Aspirin 81 mg 06/15/18 10:00 06/16/18 10:17 Ecotrin - PO 81 mg DAILY RUSSELL Administration Atorvastatin Calcium 20 mg 06/15/18 22:00 06/15/18 21:43 Lipitor - PO 20 mg HS [facility] Administration Cholecalciferol 2,000 unit 06/15/18 10:00 06/16/18 10:19 Vitamin D3 - PO 2,000 unit DAILY RUSSELL Administration Clopidogrel Bisulfate 75 mg 06/15/18 10:00 06/16/18 10:17 Plavix - PO 75 mg DAILY RUSSELL Administration Heparin Sodium (Porcine) 5,000 unit 06/15/18 10:00 06/16/18 10:20 Heparin - SQ 5,000 unit BID RUSSELL Administration Sodium Chloride 1,000 mls @ 83 mls/hr 06/16/18 08:30 06/16/18 10:18 Normal Saline - IV 83 mls/hr ASDIR RUSSELL Administration Insulin Aspart 0 units 06/15/18 16:30 06/16/18 11:50 Novolog Vial SQ Not Given ACHS RUSSELL Protocol Lactobacillus Acidophilus 1 tab 06/15/18 10:00 06/16/18 10:17 Bacid - PO 1 tab DAILY RUSSELL Administration Losartan Potassium 50 mg 06/15/18 22:00 06/15/18 21:43 Cozaar - PO 50 mg HS RUSSELL Administration Pantoprazole Sodium 40 mg 06/15/18 10:15 06/16/18 10:17 Protonix - PO 40 mg BID RUSSELL Administration Tamsulosin HCl 0.4 mg 06/15/18 18:30 06/16/18 08:30 Flomax - PO 0.4 mg BID@0830,1830 RUSSELL Administration ASSESSMENT/PLAN:
--- NOTE | 2018-06-16 15:05 | PN ---
Progress Note, Physician History of Present Illness: Pt seen and examined at bedside. He says that he feels well. He denies shortness of breath. He wants to go home. He does not want any more fluids. - Current Medication List Current Medications: Active Medications Amlodipine Besylate (Norvasc -) 5 mg PO DAILY [facility] Last Admin: 06/16/18 10:19 Dose: 5 mg Aspirin (Ecotrin -) 81 mg PO DAILY [facility] Last Admin: 06/16/18 10:17 Dose: 81 mg Atorvastatin Calcium (Lipitor -) 20 mg PO HS [facility] Last Admin: 06/15/18 21:43 Dose: 20 mg Cholecalciferol (Vitamin D3 -) 2,000 unit PO DAILY [facility] Last Admin: 06/16/18 10:19 Dose: 2,000 unit Clopidogrel Bisulfate (Plavix -) 75 mg PO DAILY [facility] Last Admin: 06/16/18 10:17 Dose: 75 mg Heparin Sodium (Porcine) (Heparin -) 5,000 unit SQ BID [facility] Last Admin: 06/16/18 10:20 Dose: 5,000 unit Sodium Chloride (Normal Saline -) 1,000 mls @ 83 mls/hr IV ASDIR [facility] Last Admin: 06/16/18 10:18 Dose: 83 mls/hr Insulin Aspart (Novolog Vial) 0 units SQ ACHS [facility]; Protocol Last Admin: 06/16/18 11:50 Dose: Not Given Lactobacillus Acidophilus (Bacid -) 1 tab PO DAILY [facility] Last Admin: 06/16/18 10:17 Dose: 1 tab Losartan Potassium (Cozaar -) 50 mg PO HS [facility] Last Admin: 06/15/18 21:43 Dose: 50 mg Pantoprazole Sodium (Protonix -) 40 mg PO BID [facility] Last Admin: 06/16/18 10:17 Dose: 40 mg Tamsulosin HCl (Flomax -) 0.4 mg PO BID@0830,1830 [facility] Last Admin: 06/16/18 08:30 Dose: 0.4 mg - Objective Vital Signs: Vital Signs Temperature 98.4 F 06/16/18 14:03 Pulse Rate 80 06/16/18 14:03 Respiratory Rate 06/16/18 14:03 Blood Pressure 112/69 06/16/18 14:03 O2 Sat by Pulse Oximetry (%) 96 06/16/18 14:03 Constitutional: Yes: Anxious Eyes: Yes: Conjunctiva Clear HENT: Yes: Atraumatic Neck: Yes: Supple Cardiovascular: Yes: S1, S2 Respiratory: Yes: CTA Bilaterally Gastrointestinal: Yes: Soft, Abdomen, Obese Genitourinary: Yes: WNL Musculoskeletal: Yes: WNL Edema: No Neurological: Yes: Oriented Psychiatric: Yes: Oriented Labs: CBC, BMP 06/16/18 07:05 06/16/18 12:56 Problem List - Problems (1) Dehydration Code(s): E86.0 - DEHYDRATION (2) Hyponatremia Code(s): E87.1 - HYPO-OSMOLALITY AND HYPONATREMIA Assessment/Plan Current Medications Generic Name Dose Route Start Last Admin Trade Name Freq PRN Reason Stop Dose Admin Amlodipine Besylate 5 mg 06/15/18 10:00 06/16/18 10:19 Norvasc - PO 5 mg DAILY [facility] Administration Aspirin 81 mg 06/15/18 10:00 06/16/18 10:17 Ecotrin - PO 81 mg DAILY [facility] Administration Atorvastatin Calcium 20 mg 06/15/18 22:00 06/15/18 21:43 Lipitor - PO 20 mg HS [facility] Administration Cholecalciferol 2,000 unit 06/15/18 10:00 06/16/18 10:19 Vitamin D3 - PO 2,000 unit DAILY [facility] Administration Clopidogrel Bisulfate 75 mg 06/15/18 10:00 06/16/18 10:17 Plavix - PO 75 mg DAILY [facility] Administration Heparin Sodium (Porcine) 5,000 unit 06/15/18 10:00 06/16/18 10:20 Heparin - SQ 5,000 unit BID [facility] Administration Sodium Chloride 1,000 mls @ 83 mls/hr 06/16/18 08:30 06/16/18 10:18 Normal Saline - IV 83 mls/hr ASDIR [facility] Administration Insulin Aspart 0 units 06/15/18 16:30 06/16/18 11:50 Novolog Vial SQ Not Given ACHS [facility] Protocol Lactobacillus Acidophilus 1 tab 06/15/18 10:00 06/16/18 10:17 Bacid - PO 1 tab DAILY [facility] Administration Losartan Potassium 50 mg 06/15/18 22:00 06/15/18 21:43 Cozaar - PO 50 mg HS [facility] Administration Pantoprazole Sodium 40 mg 06/15/18 10:15 06/16/18 10:17 Protonix - PO 40 mg BID [facility] Administration Tamsulosin HCl 0.4 mg 06/15/18 18:30 06/16/18 08:30 Flomax - PO 0.4 mg BID@0830,1830 [facility] Administration Impression 1. URI 2. hyponatremia 3. BPH 4. hepatic steatosis 5. abdominal pain 6. insomnia 7. hx diverticulosis 8. PVD 9. hyperlipidemia 10. renal cyst 11. transaminitis 12. hx splenomegaly Plan - sodium is improved but not yet in normal range - he is insisting on going home - he understands that he is at risk to fall - can give salt tabs for now - he will try to see his pmd for repeat labs - restrict free water for now - he also need eval and follow up for hepatic steatosis and splenomegaly, which he has not done - will need further hyponatremia workup and eval Dr Perdomo
--- NOTE | 2018-06-16 15:22 | DS ---
Physical Exam: SUBJECTIVE: Patient seen and examined OBJECTIVE: Vital Signs Period Temp Pulse Resp BP Sys/Muller Pulse Ox Last 24 Hr 97.8 F-98.4 F 72-97 17-20 112-142/69-78 95-96 PHYSICAL EXAM GENERAL: The patient is awake, alert, and fully oriented, in no acute distress. HEAD: Normal with no signs of trauma. EYES: PERRL, extraocular movements intact, sclera anicteric, conjunctiva clear. ENT: Ears normal, nares patent, oropharynx clear without exudates, moist mucous membranes. NECK: Trachea midline, full range of motion, supple. LUNGS: Breath sounds equal, clear to auscultation bilaterally, no wheezes, no crackles, no accessory muscle use. HEART: Regular rate and rhythm, S1, S2 without murmur, rub or gallop. ABDOMEN: Soft, nontender, nondistended, normoactive bowel sounds, no guarding, no rebound, no hepatosplenomegaly, no masses. EXTREMITIES: 2+ pulses, warm, well-perfused, no edema. NEUROLOGICAL: Cranial nerves II through XII grossly intact. Normal speech, gait not observed. PSYCH: Normal mood, normal affect. SKIN: Warm, dry, normal turgor, no rashes or lesions noted. LABS Laboratory Results - last 24 hr 06/15/18 06/15/18 06/15/18 15:59 20:15 20:15 WBC RBC Hgb Hct MCV MCH MCHC RDW Plt Count MPV Absolute Neuts (auto) Neutrophils % Lymphocytes % Monocytes % Eosinophils % Basophils % Sodium 126 L 130 L Potassium 3.5 4.2 Chloride 93 L 95 L Carbon Dioxide 25 29 Anion Gap 8 6 L BUN 14 16 Creatinine 1.0 0.9 Creat Clearance w eGFR > 60 > 60 POC Glucometer Random Glucose 155 H 80 Calcium 8.5 8.9 Magnesium 2.3 Total Bilirubin 0.6 Direct Bilirubin 0.2 AST 48 H ALT 86 H Alkaline Phosphatase 87 Total Protein 7.9 Albumin 4.2 06/15/18 06/16/18 06/16/18 21:46 00:01 05:28 WBC RBC Hgb Hct MCV MCH MCHC RDW Plt Count MPV Absolute Neuts (auto) Neutrophils % Lymphocytes % Monocytes % Eosinophils % Basophils % Sodium 130 L Potassium 4.0 Chloride 96 L Carbon Dioxide 27 Anion Gap 7 L BUN 13 Creatinine 0.8 Creat Clearance w eGFR > 60 POC Glucometer 116 131 Random Glucose 111 H Calcium 8.1 L Magnesium Total Bilirubin Direct Bilirubin AST ALT Alkaline Phosphatase Total Protein Albumin 06/16/18 06/16/18 06/16/18 07:05 07:05 11:48 WBC 5.4 RBC 4.47 Hgb 13.7 Hct 39.9 MCV 89.1 MCH 30.5 MCHC 34.3 RDW 13.8 Plt Count 175 D MPV 9.4 Absolute Neuts (auto) 3.2 Neutrophils % 57.9 D Lymphocytes % 26.6 D Monocytes % 11.2 H D Eosinophils % 3.6 Basophils % 0.7 Sodium 129 L Potassium 4.2 Chloride 96 L Carbon Dioxide 27 Anion Gap 6 L BUN 12 Creatinine 0.8 Creat Clearance w eGFR > 60 POC Glucometer 113 Random Glucose 132 H Calcium 8.5 Magnesium 2.0 Total Bilirubin 0.7 Direct Bilirubin 0.1 AST 38 H ALT 81 H Alkaline Phosphatase 80 Total Protein 7.4 Albumin 4.0 06/16/18 12:56 WBC RBC Hgb Hct MCV MCH MCHC RDW Plt Count MPV Absolute Neuts (auto) Neutrophils % Lymphocytes % Monocytes % Eosinophils % Basophils % Sodium 128 L Potassium 3.6 Chloride 99 Carbon Dioxide 23 Anion Gap 6 L BUN 13 Creatinine 0.8 Creat Clearance w eGFR > 60 POC Glucometer Random Glucose 173 H Calcium 8.2 L Magnesium Total Bilirubin Direct Bilirubin AST ALT Alkaline Phosphatase Total Protein Albumin HOSPITAL COURSE: Date of Admission:06/15/18 Date of Discharge: 06/16/18 Discharge Summary Reason For Visit: HYPONATREMIA Current Active Problems Dehydration (Acute) Hyponatremia (Acute) Condition: Stable - Instructions Disposition: HOME - Home Medications Comprehensive Discharge Medication List: Ambulatory Orders Aspirin [Aspir 81] 81 mg PO DAILY 01/29/16 Atorvastatin Ca [Lipitor] 20 mg PO DAILY 02/09/16 Cholecalciferol (Vitamin D3) [Vitamin D3] 2,000 unit PO DAILY 02/09/16 Pantoprazole Sodium [Protonix] 40 mg PO BID 01/02/17 Tamsulosin HCl [Flomax] 0.4 mg PO BID 01/02/17 Amlodipine Besylate [Norvasc -] 5 mg PO DAILY 04/15/17 Losartan Potassium 50 mg PO HS 04/15/17 L.acidoph,Paracasei, B.lactis [Probiotic] 1 each PO DAILY 11/02/17 Metformin HCl [Metformin HCl ER] 500 mg PO BID 06/15/18
== END 2018-06-16 16:22 | disposition home or self-care (01) | DRG 640 ==
LOC: FER 02:03 → FM/S 03:36 → FER 04:43 → FM/S 05:10 → UNDOADMIN 05:10 → FM/S 06:50
PROVIDERS: ADMIT Internal Medicine; ATTEND Nurse Practitioner Acute Care
DX: E87.1 Hypo-osmolality and hyponatremia (principal); G93.41 Metabolic encephalopathy; E86.0 Dehydration; J44.9 Chronic obstructive pulmonary disease, unspecified; E78.00 Pure hypercholesterolemia, unspecified; I25.10 Atherosclerotic heart disease of native coronary artery without angina pectoris; N40.0 Benign prostatic hyperplasia without lower urinary tract symptoms; K21.9 Gastro-esophageal reflux disease without esophagitis; K22.70 Barrett's esophagus without dysplasia; I73.9 Peripheral vascular disease, unspecified; K57.90 Diverticulosis of intestine, part unspecified, without perforation or abscess without bleeding; N32.81 Overactive bladder; I10 Essential (primary) hypertension; E83.42 Hypomagnesemia; E66.9 Obesity, unspecified; Z68.34 Body mass index [BMI] 34.0-34.9, adult; N28.1 Cyst of kidney, acquired; G47.00 Insomnia, unspecified; J06.9 Acute upper respiratory infection, unspecified; K76.0 Fatty (change of) liver, not elsewhere classified; R16.1 Splenomegaly, not elsewhere classified; R74.8 Abnormal levels of other serum enzymes; Z87.891 Personal history of nicotine dependence; Z95.5 Presence of coronary angioplasty implant and graft
CPT/HCPCS: 36415; 71045-TC-FY; 76705-TC; 80048; 80053; 80074; 80076; 81003; 82570; 82962; 83735; 83930; 83935; 84100; 84156; 84300; 85025; 87633; 87804; 87899; 93005; 99285-25; J1644; J7030

== ENCOUNTER 2018-10-01 07:45 | Day surgery (SDC) | payer OTHER, MEDICARE | END 2018-10-01 10:30 | disposition home or self-care (01) | LOC: FASU-ENDO 07:45 ==

== ENCOUNTER 2021-03-19 07:13 | Day surgery (SDC) | payer OTHER, MEDICARE ==
[2021-03-14 12:39] VITALS: BMI 38.7
[2021-03-19] MEDS ORDERED: PROPOFOL 20 ML ONE ×8 (07:41→08:31)
[2021-03-19] MEDS ORDERED: LIDOCAINE HCL/PF 2% SDV 5ML VIAL ONE (07:41)
[2021-03-19 12:35] VITALS: TEMP 98.1
[2021-03-19 12:43] VITALS: BP 105/70; PULSE 84
== END 2021-03-19 09:40 | disposition home or self-care (01) ==
LOC: FASU-ENDO 07:13
PROVIDERS: ATTEND Internal Medicine Gastroenterology
PROC: 0DB58ZX Excision of Esophagus, Via Natural or Artificial Opening Endoscopic, Diagnostic (ICD-10-PCS; 2021-03-19)
PROC: 0DB68ZX Excision of Stomach, Via Natural or Artificial Opening Endoscopic, Diagnostic (ICD-10-PCS; 2021-03-19)
PROC: 0DBM8ZX Excision of Descending Colon, Via Natural or Artificial Opening Endoscopic, Diagnostic (ICD-10-PCS; principal; 2021-03-19 08:21)
DX: Z86.010 Personal history of colon polyps (principal); K57.30 Diverticulosis of large intestine without perforation or abscess without bleeding; K29.50 Unspecified chronic gastritis without bleeding; K22.70 Barrett's esophagus without dysplasia; K44.9 Diaphragmatic hernia without obstruction or gangrene
CPT/HCPCS: 82962; 88305-TC; 88342-TC

== ENCOUNTER 2021-05-07 10:31 | Emergency (ER) | payer OTHER, MEDICARE ==
[2021-05-07 10:46] VITALS: BP 116/66; PULSE 105; TEMP 99.3; BMI 38.0
[2021-05-07] MEDS ORDERED: ACETAMINOPHEN 1000 MG/100 ML BAG IVPB ONE (11:33)
[2021-05-07] MEDS ORDERED: LACTATED RINGERS SOLUTION 1000 ML INFUS.BAG IV ONE (11:33)
[2021-05-07] MEDS ORDERED: ACETAMINOPHEN INJECTION 100 ML IVPB ONE (12:10)
[2021-05-07 12:22] LABS: CALCIUM 10.2 mg/dl (8.5-10)
[2021-05-07 12:25] LABS: ALBUMIN 4.4 g/dl (3.4-5.0); BILIRUBIN,TOTAL 0.9 mg/dl (0.2-1); CREATININE 1.1 mg/dl (0.55-1.3); TOT PROT 7.7 g/dl (6.4-8.2)
[2021-05-07 14:53] LABS: BASO % 1.8 % (0-2.0); EOS % 4.5 % (0-4.5); HEMATOCRIT 42.5 % (35.4-49); HEMOGLOBIN 14.5 GM/dL (11.7-16.9); LYMPH % 20.8 % (8-40); MCH 29.9 pg (25.7-33.7); MCHC 34.1 g/dl (32.0-35.9); MEAN CELL VOLUME 87.8 fl (80-96); MEAN PLT VOLUME 9.9 fl (7.5-11.1); MONO % 7.1 % (3.8-10.2); NEUT % 65.8 % (42.8-82.8); PLATELET COUNT 212 10^3/uL (134-434); RBC 4.85 M/mm3 (4.00-5.60); RDW 14.6 % (11.9-15.9); WHITE BLOOD COUNT 8.6 K/mm3 (4.0-10.0)
== END 2021-05-07 15:46 | disposition home or self-care (01) ==
LOC: FER 10:31
PROC: 3E0333Z Introduction of Anti-inflammatory into Peripheral Vein, Percutaneous Approach (ICD-10-PCS; principal; 2021-05-07)
DX: R10.9 Unspecified abdominal pain (principal)
CPT/HCPCS: 36415; 71045-TC-FY; 74177-TC; 80053; 81003; 83690; 84484; 85025; 93005; 99285-25; J0131; Q9967